=== PATIENT | female | born 1935 | race Caucasian/White ===

== ENCOUNTER → 2017-03-17 | Outpatient (CLI) | payer OTHER ==
[~2017-03-17] MED LIST: LEVOTHYROXINE; SINEMET
[2017-03-17 11:05] LABS: Basophils # (auto) 0 uL; Basophils % (auto) 0.5 % (0.0-2.0); CONDITION Y; Eosinophils # (auto) 0.1 uL; Eosinophils % (auto) 1.9 % (0.0-7.0); Hematocrit 41.7 % (36.0-46.0); Hemoglobin 13.9 g/dL (12.2-16.2); Lymphocytes # (auto) 1.2 uL; Lymphocytes % (auto) 17.9 % (10.0-50.0); Mean Corpuscular Hemoglobin 30.1 pg (28.0-32.0); Mean Corpuscular Hgb Conc. 33.4 g/dL (32.0-36.0); Mean Corpuscular Volume 90.2 fL (80.0-100.0); Mean Platelet Volume 9.2 fL (7.4-10.4); Monocytes # (auto) 0.4 uL; Monocytes % (auto) 6.1 % (0.0-12.0); Neutrophils # (auto) 4.8 uL; Neutrophils % (auto) 73.6 % (37.0-80.0); Platelet Count (auto) 223 10^3/uL (140-450); White Blood Cell 6.6 10^3/uL (4.4-10.8)
[2017-03-17 11:07] LABS: Urine Bilirubin Negative (Negative); Urine Blood Negative /uL (Negative); Urine Color Yellow (Yellow); Urine Glucose Normal (Normal); Urine Hyaline Cast FEW /lpf (0 - 2); Urine Ketone Negative (Negative); Urine Mucus FEW (None Seen); Urine Nitrite Negative (Negative); Urine RBC <1 /hpf (0 - 4); Urine Squamous Epithelial Cell FEW /hpf (<5); Urine Urobilinogen Normal (Negative)
[2017-03-17 11:37] LABS: Albumin 3.5 g/dL (3.4-5.0); BUN/Creatinine Ratio 22.4; Bilirubin, Total 0.4 mg/dL (0.2-1.0); Calcium 9.1 mg/dL (8.5-10.1); Potassium 4.1 mmol/L (3.5-5.1); Total Protein 7.2 g/dL (6.4-8.2)
== END | disposition home or self-care (01) ==
LOC: LAB 09:57
PROVIDERS: ATTEND Family Medicine
DX: I10 Essential (primary) hypertension (principal); E78.5 Hyperlipidemia, unspecified; E11.9 Type 2 diabetes mellitus without complications; E03.9 Hypothyroidism, unspecified; E55.9 Vitamin D deficiency, unspecified
CPT/HCPCS: 36415; 80053; 80061; 81001; 82043; 82306; 83036; 84443; 85025

== ENCOUNTER 2018-02-02 15:04 | Inpatient (IN) | payer OTHER ==
[~2018-02-02] VITALS: Ht 162.6 cm; Wt 57.4 kg
[~2018-02-02 15:04] MED LIST changes: -LEVOTHYROXINE; +LEVOTHYROXINE PO; -SINEMET; +SINEMET PO
[2018-02-02] MEDS ORDERED: MORPHINE SULF INJ 2 MG/ML SYRINGE 1ML IV ONE (16:30)
[2018-02-02 16:55] LABS: Basophils # (auto) 0 uL; Basophils % (auto) 0.2 % (0.0-2.0); Eosinophils # (auto) 0 uL; Eosinophils % (auto) 0.3 % (0.0-7.0); Hematocrit 34.2 % (36.0-46.0); Hemoglobin 11.5 g/dL (12.2-16.2); Lymphocytes # (auto) 0.5 uL; Lymphocytes % (auto) 5.3 % (10.0-50.0); Mean Corpuscular Hemoglobin 30.3 pg (28.0-32.0); Mean Corpuscular Hgb Conc. 33.7 g/dL (32.0-36.0); Monocytes # (auto) 0.6 uL; Monocytes % (auto) 6.6 % (0.0-12.0); Neutrophils # (auto) 8.6 uL; Neutrophils % (auto) 87.6 % (37.0-80.0); Platelet Count (auto) 228 10^3/uL (140-450); Red Cell Distribution Width 14.4 % (11.8-14.3); White Blood Cell 9.8 10^3/uL (4.4-10.8)
[2018-02-02 17:09] LABS: Potassium 3.9 mmol/L (3.5-5.1)
[2018-02-02 18:41] LABS: INR 0.96 (0.9-1.15); Prothrombin Time 10.3 sec (9.27-12.13)
[2018-02-02] MEDS: HYDROcodone-ACET 5/325MG TAB PO PRN (20:58)
[2018-02-02 21:44] VITALS: BP 171/80
[2018-02-02 22:21] VITALS: BP 155/85
[2018-02-03 04:51] VITALS: BP 137/64
[2018-02-03 07:28] LABS: BUN/Creatinine Ratio 26.9; Calcium 8.2 mg/dL (8.5-10.1); Potassium 3.8 mmol/L (3.5-5.1)
[2018-02-03 08:00] VITALS: BP 146/81
[2018-02-03] MEDS ORDERED: PNEUMOCOCCAL VACC POLYS 25 MCG/0.5 ML VIAL IM ONE (08:00)
[2018-02-03 09:00] VITALS: BP 146/81
[2018-02-03] MEDS: LISINOPRIL 10 MG TAB PO SCH (09:32)
[2018-02-03] MEDS: HYDROcodone-ACET 5/325MG TAB PO PRN (09:32)
[2018-02-03 13:00] VITALS: BP 152/68
[2018-02-03] MEDS ORDERED: POTA20TA53 PO (14:07)
[2018-02-03] MEDS ORDERED: SERT-160 PO (14:07)
[2018-02-03] MEDS ORDERED: METF-370 PO (14:07)
[2018-02-03] MEDS ORDERED: LISI-646 PO (14:07)
[2018-02-03] MEDS ORDERED: HCTZ25T PO (14:07)
[2018-02-03] MEDS ORDERED: AMLO5TAB2 PO (14:07)
[2018-02-03] MEDS ORDERED: SIMV-8 PO (14:08)
[2018-02-03] MEDS ORDERED: OMEP20TA PO (14:08)
[2018-02-03 17:00] VITALS: BP 126/63
[2018-02-03 22:00] VITALS: BP 162/83
[2018-02-04] MEDS: HYDROcodone-ACET 5/325MG TAB PO PRN ×2 (05:13→18:07)
[2018-02-04 05:30] VITALS: BP 160/88
[2018-02-04 08:00] VITALS: BP 137/79
[2018-02-04 09:55] VITALS: BP 137/79
[2018-02-04] MEDS: LISINOPRIL 10 MG TAB PO SCH (10:00)
[2018-02-04] MEDS ORDERED: DEXTROSE (50%) 50ML SYRG IV PRN (11:15)
[2018-02-04] MEDS ORDERED: LEVOTHYROXINE SODIUM 25 MCG TAB PO ONE (11:15)
[2018-02-04] MEDS: InsuLIN REG 1unit/0.01ml Soln (100units/ml) SC SCH ×3 (11:30→21:42)
[2018-02-04] MEDS ORDERED: amLODIPine BESYLATE 5 MG TAB PO ONE (11:30)
[2018-02-04] MEDS: ACCU-CHEK COMFORT CURVE STRIP VI SCH ×3 (11:30→21:42)
[2018-02-04] MEDS ORDERED: SERTRALINE HCL 50 MG TAB PO ONE (11:30)
[2018-02-04 12:52] VITALS: BP 144/74
[2018-02-04 17:23] VITALS: BP 145/97
[2018-02-04] MEDS: SODIUM CHLORIDE 0.9% 1,000 ML IV SCH (18:08)
[2018-02-04 22:00] VITALS: BP 147/82
[2018-02-04] MEDS ORDERED: diphenhdrAMINE HCL 25 MG CAP PO ONE (23:00)
[2018-02-05 01:00] LABS: Urine Bacteria FEW /hpf (None Seen); Urine Blood 3+ /uL (Negative); Urine Hyaline Cast FEW /lpf (0 - 2); Urine Mucus FEW (None Seen); Urine Specific Gravity 1.023 (1.001-1.035); Urine WBC 65 /hpf (0 - 5)
[2018-02-05] MEDS: MORPHINE SULF INJ 2 MG/ML SYRINGE 1ML IV PRN ×3 (03:57→22:08)
[2018-02-05] MEDS: ONDANSETRON HCL 4 MG/2 ML VIAL IV PRN (03:58)
[2018-02-05] MEDS: SODIUM CHLORIDE 0.9% 1,000 ML IV SCH ×2 (04:38→20:35)
[2018-02-05 05:00] VITALS: BP 150/86
[2018-02-05] MEDS: LEVOTHYROXINE SODIUM 25 MCG TAB PO SCH (06:17)
[2018-02-05] MEDS: ACCU-CHEK COMFORT CURVE STRIP VI SCH ×4 (06:17→22:00)
[2018-02-05] MEDS: InsuLIN REG 1unit/0.01ml Soln (100units/ml) SC SCH ×4 (06:17→22:02)
[2018-02-05 08:00] VITALS: BP 162/80
[2018-02-05 08:08] VITALS: BP 149/80
[2018-02-05] MEDS: LISINOPRIL 10 MG TAB PO SCH (08:30)
[2018-02-05] MEDS: amLODIPine BESYLATE 5 MG TAB PO SCH (08:31)
[2018-02-05] MEDS ORDERED: ceFAZolin 1GM/50ML 100 ML IV ONE (09:25)
[2018-02-05] MEDS ORDERED: ceFAZolin 1GM 2 GM in D5W 5% 100 ML IV ONE (09:30)
[2018-02-05] MEDS ORDERED: SODIUM CHLORIDE LOCK 30 ML ONE (09:44)
[2018-02-05] MEDS ORDERED: fentaNYL CITRATE 5 ML ONE ×2 (09:44→09:49)
[2018-02-05] MEDS ORDERED: fentaNYL CITRATE 100 MCG/2 ML VL ONE (09:44)
[2018-02-05] MEDS ORDERED: PROPOFOL 10 MG/ML 20 ML IV ONE (09:44)
[2018-02-05] MEDS ORDERED: MEPERIDINE HCL (50 MG/ML) 1 ML VIAL ONE (09:44)
[2018-02-05] MEDS ORDERED: MIDAZOLAM HCL 1MG/1ML-2 ML VIAL ONE (09:44)
[2018-02-05] MEDS ORDERED: ONDANSETRON HCL 4 MG/2 ML VIAL ONE (09:44)
[2018-02-05] MEDS ORDERED: fentaNYL CITRATE 100 MCG/2 ML VL IV ONE (11:00)
[2018-02-05] MEDS ORDERED: METOCLOPRAMIDE HCL 5MG/ml INJ 2ml VIAL IV ONE (11:00)
[2018-02-05] MEDS ORDERED: ACCU-CHEK COMFORT CURVE STRIP VI ONE (11:00)
[2018-02-05] MEDS ORDERED: NEOSTIGMINE 1 MG/ML INJ (10mg/10ML VIAL) ONE (11:14)
[2018-02-05] MEDS ORDERED: KETOROLAC TROMETH 60MG/2ML VIAL IM ONE (11:14)
[2018-02-05] MEDS ORDERED: GLYCOPYRROLATE 0.2 MG/ML 1ML VIAL ONE (11:14)
[2018-02-05] MEDS ORDERED: hydrALAZINE HCL 20 MG/ML VL IV PRN (14:00)
[2018-02-05 16:22] VITALS: BP 121/64
[2018-02-05] MEDS: SERTRALINE HCL 50 MG TAB PO SCH (17:56)
[2018-02-05] MEDS: CEFAZOLIN 1 GM IV SCH (17:57)
[2018-02-05 22:00] VITALS: BP 105/56
[2018-02-06] VITALS (7 sets, daily range): BP systolic 138–152; BP diastolic 64–82
[2018-02-06] MEDS: CEFAZOLIN 1 GM IV SCH ×4 (00:16→18:12)
[2018-02-06 05:59] LABS: Basophils # (auto) 0 uL; Basophils % (auto) 0.2 % (0.0-2.0); Eosinophils # (auto) 0.2 uL; Eosinophils % (auto) 2.3 % (0.0-7.0); Hematocrit 28.1 % (36.0-46.0); Hemoglobin 9.6 g/dL (12.2-16.2); Lymphocytes # (auto) 0.6 uL; Lymphocytes % (auto) 6.9 % (10.0-50.0); Mean Corpuscular Hemoglobin 30.9 pg (28.0-32.0); Mean Corpuscular Volume 91.1 fL (80.0-100.0); Monocytes # (auto) 0.4 uL; Monocytes % (auto) 4.9 % (0.0-12.0); Neutrophils # (auto) 7.2 uL; Neutrophils % (auto) 85.7 % (37.0-80.0); Platelet Count (auto) 266 10^3/uL (140-450); Red Blood Cells 3.09 10^6/uL (4.0-5.20); Red Cell Distribution Width 14.7 % (11.8-14.3); White Blood Cell 8.5 10^3/uL (4.4-10.8)
[2018-02-06] MEDS: ACCU-CHEK COMFORT CURVE STRIP VI SCH ×4 (06:37→21:56)
[2018-02-06] MEDS: InsuLIN REG 1unit/0.01ml Soln (100units/ml) SC SCH ×4 (06:37→21:56)
[2018-02-06 06:38] LABS: BUN/Creatinine Ratio 29.9; Bilirubin, Total 0.4 mg/dL (0.2-1.0); Calcium 7.5 mg/dL (8.5-10.1); Magnesium 2.2 mg/dL (1.6-2.6); Potassium 3.9 mmol/L (3.5-5.1)
[2018-02-06] MEDS: LEVOTHYROXINE SODIUM 25 MCG TAB PO SCH (06:50)
[2018-02-06] MEDS: MORPHINE SULF INJ 2 MG/ML SYRINGE 1ML IV PRN ×2 (06:51→20:49)
[2018-02-06] MEDS: HYDROcodone-ACET 5/325MG TAB PO PRN (09:34)
[2018-02-06] MEDS: amLODIPine BESYLATE 5 MG TAB PO SCH (09:35)
[2018-02-06] MEDS: SERTRALINE HCL 50 MG TAB PO SCH (09:35)
[2018-02-06] MEDS: LISINOPRIL 10 MG TAB PO SCH (09:36)
[2018-02-06] MEDS: PRO-STAT 64 30ML PO SCH (18:00)
[2018-02-06] MEDS: MULTIPLE VITAMINS W/ MINERALS TAB PO SCH (18:14)
[2018-02-06] MEDS: ASCORBIC ACID 500 MG TAB PO SCH (21:57)
[2018-02-07] VITALS (7 sets, daily range): BP systolic 143–158; BP diastolic 72–80
[2018-02-07] MEDS: MORPHINE SULF INJ 2 MG/ML SYRINGE 1ML IV PRN (05:54)
[2018-02-07 06:15] LABS: Basophils # (auto) 0 uL; Basophils % (auto) 0.4 % (0.0-2.0); Eosinophils # (auto) 0.2 uL; Eosinophils % (auto) 2.4 % (0.0-7.0); Hematocrit 27.1 % (36.0-46.0); Hemoglobin 9.1 g/dL (12.2-16.2); Lymphocytes # (auto) 0.9 uL; Lymphocytes % (auto) 9.9 % (10.0-50.0); Mean Corpuscular Hemoglobin 30.3 pg (28.0-32.0); Mean Corpuscular Hgb Conc. 33.5 g/dL (32.0-36.0); Mean Corpuscular Volume 90.3 fL (80.0-100.0); Monocytes # (auto) 0.6 uL; Monocytes % (auto) 6.5 % (0.0-12.0); Neutrophils # (auto) 7.3 uL; Neutrophils % (auto) 80.8 % (37.0-80.0); Platelet Count (auto) 281 10^3/uL (140-450); Red Cell Distribution Width 14.8 % (11.8-14.3)
[2018-02-07 06:36] LABS: Calcium 7.5 mg/dL (8.5-10.1); Potassium 3.6 mmol/L (3.5-5.1)
[2018-02-07 06:38] LABS: BUN/Creatinine Ratio 35.7
[2018-02-07] MEDS: InsuLIN REG 1unit/0.01ml Soln (100units/ml) SC SCH ×4 (06:41→21:37)
[2018-02-07] MEDS: ACCU-CHEK COMFORT CURVE STRIP VI SCH ×4 (06:41→21:37)
[2018-02-07] MEDS: LEVOTHYROXINE SODIUM 25 MCG TAB PO SCH (06:49)
[2018-02-07] MEDS: PRO-STAT 64 30ML PO SCH ×2 (08:00→17:56)
[2018-02-07] MEDS: DOCUSATE SOD 100 MG CAP PO SCH ×2 (10:29→21:36)
[2018-02-07] MEDS: MULTIPLE VITAMINS W/ MINERALS TAB PO SCH (10:29)
[2018-02-07] MEDS: amLODIPine BESYLATE 5 MG TAB PO SCH (10:30)
[2018-02-07] MEDS: ASCORBIC ACID 500 MG TAB PO SCH ×2 (10:31→21:36)
[2018-02-07] MEDS: LISINOPRIL 10 MG TAB PO SCH (10:32)
[2018-02-07] MEDS: SERTRALINE HCL 50 MG TAB PO SCH (10:32)
[2018-02-07] MEDS: LACTULOSE 20Gm/30ML SOLN PO PRN (10:33)
[2018-02-07] MEDS: ONDANSETRON HCL 4 MG/2 ML VIAL IV PRN (20:13)
[2018-02-08 05:00] VITALS: BP 136/75
[2018-02-08 06:48] LABS: Hematocrit 27.2 % (36.0-46.0); Hemoglobin 9.3 g/dL (12.2-16.2)
[2018-02-08] MEDS: ACCU-CHEK COMFORT CURVE STRIP VI SCH (06:49)
[2018-02-08] MEDS: LEVOTHYROXINE SODIUM 25 MCG TAB PO SCH (06:49)
[2018-02-08] MEDS: InsuLIN REG 1unit/0.01ml Soln (100units/ml) SC SCH (06:50)
[2018-02-08] MEDS: PRO-STAT 64 30ML PO SCH ×2 (08:00→18:25)
[2018-02-08 08:30] VITALS: BP 160/76
[2018-02-08] MEDS: DOCUSATE SOD 100 MG CAP PO SCH ×2 (10:33→22:16)
[2018-02-08] MEDS: LISINOPRIL 10 MG TAB PO SCH (10:33)
[2018-02-08] MEDS: MULTIPLE VITAMINS W/ MINERALS TAB PO SCH (10:33)
[2018-02-08] MEDS: ASCORBIC ACID 500 MG TAB PO SCH ×2 (10:33→22:16)
[2018-02-08] MEDS: SERTRALINE HCL 50 MG TAB PO SCH (10:34)
[2018-02-08] MEDS: amLODIPine BESYLATE 5 MG TAB PO SCH (10:42)
[2018-02-08] MEDS: LACTULOSE 20Gm/30ML SOLN PO PRN (10:42)
[2018-02-08] MEDS: HYDROcodone-ACET 5/325MG TAB PO PRN ×3 (10:44→22:16)
[2018-02-08] MEDS: ONDANSETRON HCL 4 MG/2 ML VIAL IV PRN ×2 (10:44→17:10)
[2018-02-08 10:56] LABS: Hematocrit 28.3 % (36.0-46.0); Hemoglobin 9.6 g/dL (12.2-16.2)
[2018-02-08 13:36] VITALS: BP 129/70
[2018-02-08 16:55] VITALS: BP 130/70
[2018-02-08 22:00] VITALS: BP 126/76
[2018-02-09 05:00] VITALS: BP 144/74
[2018-02-09] MEDS: LEVOTHYROXINE SODIUM 25 MCG TAB PO SCH (06:00)
[2018-02-09 08:00] VITALS: BP 131/66
[2018-02-09] MEDS: PRO-STAT 64 30ML PO SCH (08:00)
[2018-02-09] MEDS: HYDROcodone-ACET 5/325MG TAB PO PRN (08:33)
[2018-02-09] MEDS: SERTRALINE HCL 50 MG TAB PO SCH (10:15)
[2018-02-09] MEDS: amLODIPine BESYLATE 5 MG TAB PO SCH (10:15)
[2018-02-09] MEDS ORDERED: CALCIUM CARB 500 MG CHEW TAB PO ONE (10:15)
[2018-02-09] MEDS: MULTIPLE VITAMINS W/ MINERALS TAB PO SCH (10:15)
[2018-02-09] MEDS: DOCUSATE SOD 100 MG CAP PO SCH (10:15)
[2018-02-09] MEDS ORDERED: PANTOPRAZOLE 40 MG TAB PO ONE (10:15)
[2018-02-09] MEDS: LISINOPRIL 10 MG TAB PO SCH (10:15)
[2018-02-09 11:00] VITALS: BP 131/66
[2018-02-09 12:30] VITALS: BP 132/76
[2018-02-09 13:30] VITALS: BP 161/77
== END 2018-02-09 12:24 | disposition home or self-care (01) | DRG 483 ==
LOC: ER 15:11 → OVERFLOW 15:12 → CENTRAL 20:05
PROVIDERS: ADMIT Internal Medicine; ATTEND Internal Medicine
PROC: 0LQ10ZZ Repair Right Shoulder Tendon, Open Approach (ICD-10-PCS; 2018-02-05)
PROC: 0LS10ZZ Reposition Right Shoulder Tendon, Open Approach (ICD-10-PCS; 2018-02-05)
PROC: 0RRJ0J6 Replacement of Right Shoulder Joint with Synthetic Substitute, Humeral Surface, Open Approach (ICD-10-PCS; principal; 2018-02-05 10:18)
DX: S42.241A 4-part fracture of surgical neck of right humerus, initial encounter for closed fracture (principal); J96.00 Acute respiratory failure, unspecified whether with hypoxia or hypercapnia; N17.0 Acute kidney failure with tubular necrosis; S22.41XA Multiple fractures of ribs, right side, initial encounter for closed fracture; D62 Acute posthemorrhagic anemia; E70.1 Other hyperphenylalaninemias; E03.9 Hypothyroidism, unspecified; E11.9 Type 2 diabetes mellitus without complications; I10 Essential (primary) hypertension; K59.00 Constipation, unspecified; I70.0 Atherosclerosis of aorta; M54.9 Dorsalgia, unspecified; G89.29 Other chronic pain; W18.39XA Other fall on same level, initial encounter; Y93.01 Activity, walking, marching and hiking; M75.21 Bicipital tendinitis, right shoulder; M75.101 Unspecified rotator cuff tear or rupture of right shoulder, not specified as traumatic; Z90.89 Acquired absence of other organs; Z90.710 Acquired absence of both cervix and uterus; Y92.098 Other place in other non-institutional residence as the place of occurrence of the external cause; Y99.8 Other external cause status; Z28.21 Immunization not carried out because of patient refusal
CPT/HCPCS: 36415; 51702; 71045; 73020; 73200; 80048; 80053; 81001; 82962; 83036; 83735; 84443; 85014; 85018; 85025; 85610; 85730; 87086; 93005; 94761; 96374; 97110; 97116; 97163; 97530; J0690; J1815; J1885; J2250; J2405; J2704; J7060

== ENCOUNTER 2018-04-11 17:11 | Inpatient (IN) | payer OTHER ==
[~2018-04-11] VITALS: Ht 165.1 cm; Wt 55.6 kg
[~2018-04-11 17:11] MED LIST changes: +AMLO5TAB13 PO; +HCTZ25T PO; +LISI-646 PO; +METF-370 PO; +OMEP20TA PO; +POTA20TA53 PO; +SERT-160 PO; +SIMV-8 PO
[2018-04-11] MEDS ORDERED: SODIUM CHLORIDE 0.9% 1,000 ML IVB ONE (17:57)
[2018-04-11 18:52] LABS: Basophils # (auto) 0 uL; Basophils % (auto) 0.4 % (0.0-2.0); Eosinophils # (auto) 0.1 uL; Eosinophils % (auto) 1.1 % (0.0-7.0); Hematocrit 37.9 % (36.0-46.0); Hemoglobin 12.5 g/dL (12.2-16.2); Lymphocytes # (auto) 0.7 uL; Lymphocytes % (auto) 10.2 % (10.0-50.0); Mean Corpuscular Hemoglobin 29.7 pg (28.0-32.0); Mean Corpuscular Hgb Conc. 33.1 g/dL (32.0-36.0); Mean Corpuscular Volume 89.7 fL (80.0-100.0); Monocytes # (auto) 0.6 uL; Monocytes % (auto) 7.7 % (0.0-12.0); Neutrophils # (auto) 5.8 uL; Neutrophils % (auto) 80.6 % (37.0-80.0); Platelet Count (auto) 211 10^3/uL (140-450); Red Blood Cells 4.22 10^6/uL (4.0-5.20); Red Cell Distribution Width 14.8 % (11.8-14.3); White Blood Cell 7.2 10^3/uL (4.4-10.8)
[2018-04-11 19:06] LABS: INR 0.98 (0.9-1.15); Partial Thromboplastin Time 24.4 sec (23.78-33.04); Prothrombin Time 10.5 sec (9.27-12.13)
[2018-04-11 19:17] LABS: Alanine Aminotransferase 21 U/L (13-56); Albumin 3.4 g/dL (3.4-5.0); Alkaline Phosphatase 103 U/L (45-117); Anion Gap 7 (5-15); Aspartate Aminotransferase 22 U/L (15-37); BUN/Creatinine Ratio 19.5; Bilirubin, Total 0.2 mg/dL (0.2-1.0); Blood Urea Nitrogen 24 mg/dL (7-18); Calcium 8.6 mg/dL (8.5-10.1); Carbon Dioxide 26 mmol/L (21-32); Chloride 106 mmol/L (98-107); GFR African American 54 mL/min; GFR Non-African American 45 mL/min; Glucose 88 mg/dL (74-106); Magnesium 2.7 mg/dL (1.6-2.6); Potassium 3.5 mmol/L (3.5-5.1); Sodium 139 mmol/L (136-145); Total Protein 6.5 g/dL (6.4-8.2)
[2018-04-11 21:41] LABS: Urine Bacteria NONE SEEN /hpf (None Seen); Urine Blood Negative /uL (Negative); Urine Specific Gravity 1.006 (1.001-1.035); Urine WBC 88 /hpf (0 - 5)
[2018-04-11] MEDS ORDERED: cefTRIAXone 1GM/10ml IVPUSH 10 ML IV ONE (22:45)
[2018-04-12] MEDS ORDERED: TEMAZEPAM 15 MG CAP PO PRN (00:45)
[2018-04-12] MEDS ORDERED: ACETAMINOPHEN 500 MG TAB PO PRN (00:45)
[2018-04-12] MEDS ORDERED: ONDANSETRON HCL 4 MG/2 ML VIAL IV PRN (00:45)
[2018-04-12] MEDS ORDERED: DEXTROSE (50%) 50ML SYRG IV PRN (00:45)
[2018-04-12] MEDS: InsuLIN REG 1unit/0.01ml Soln (100units/ml) SC SCH ×4 (07:00→22:26)
[2018-04-12] MEDS: ACCU-CHEK COMFORT CURVE STRIP VI SCH ×4 (07:10→22:26)
[2018-04-12] MEDS: LEVOTHYROXINE SODIUM 25 MCG TAB PO SCH (07:46)
[2018-04-12] MEDS: metFORMIN HYDROCHLORIDE 500 MG TAB PO SCH ×2 (08:30→18:00)
[2018-04-12] MEDS: amLODIPine BESYLATE 5 MG TAB PO SCH (09:37)
[2018-04-12 10:51] LABS: Basophils # (auto) 0 uL; Basophils % (auto) 0.7 % (0.0-2.0); Eosinophils # (auto) 0.1 uL; Eosinophils % (auto) 1.8 % (0.0-7.0); Hemoglobin 12.2 g/dL (12.2-16.2); Lymphocytes % (auto) 15.5 % (10.0-50.0); Mean Corpuscular Hgb Conc. 32.2 g/dL (32.0-36.0); Mean Corpuscular Volume 90.3 fL (80.0-100.0); Monocytes # (auto) 0.3 uL; Monocytes % (auto) 5.2 % (0.0-12.0); Neutrophils # (auto) 5.2 uL; Neutrophils % (auto) 76.8 % (37.0-80.0); Platelet Count (auto) 163 10^3/uL (140-450); Red Blood Cells 4.21 10^6/uL (4.0-5.20); Red Cell Distribution Width 14.8 % (11.8-14.3); White Blood Cell 6.7 10^3/uL (4.4-10.8)
[2018-04-12 11:06] LABS: BUN/Creatinine Ratio 20.4; Calcium 8.4 mg/dL (8.5-10.1); Potassium 3.9 mmol/L (3.5-5.1)
[2018-04-12 14:32] VITALS: BP 155/83
[2018-04-12 17:09] VITALS: BP 140/72
[2018-04-12 22:00] VITALS: BP 136/75
[2018-04-12] MEDS: cefTRIAXone 1GM/10ml IVPUSH 10 ML IV SCH (22:25)
[2018-04-13 05:00] VITALS: BP 165/83
[2018-04-13] MEDS: InsuLIN REG 1unit/0.01ml Soln (100units/ml) SC SCH ×4 (06:43→21:38)
[2018-04-13] MEDS: ACCU-CHEK COMFORT CURVE STRIP VI SCH ×4 (06:44→21:39)
[2018-04-13] MEDS: LEVOTHYROXINE SODIUM 25 MCG TAB PO SCH (06:55)
[2018-04-13 08:00] VITALS: BP 167/78
[2018-04-13] MEDS: metFORMIN HYDROCHLORIDE 500 MG TAB PO SCH ×2 (08:54→17:47)
[2018-04-13] MEDS: amLODIPine BESYLATE 5 MG TAB PO SCH (10:43)
[2018-04-13 12:00] VITALS: BP 144/83
[2018-04-13] MEDS ORDERED: SOD CHL 0.45% 1,000 ML IV ONE (13:30)
[2018-04-13 16:00] VITALS: BP 146/77
[2018-04-13] MEDS: cefTRIAXone 1GM/10ml IVPUSH 10 ML IV SCH (21:38)
[2018-04-13 22:00] VITALS: BP 154/83
[2018-04-14 06:03] VITALS: BP 158/84
[2018-04-14] MEDS: InsuLIN REG 1unit/0.01ml Soln (100units/ml) SC SCH ×4 (06:04→21:52)
[2018-04-14] MEDS: ACCU-CHEK COMFORT CURVE STRIP VI SCH ×4 (06:04→21:52)
[2018-04-14] MEDS: LEVOTHYROXINE SODIUM 25 MCG TAB PO SCH (06:41)
[2018-04-14 07:03] LABS: Basophils # (auto) 0 uL; Basophils % (auto) 0.8 % (0.0-2.0); Eosinophils # (auto) 0.2 uL; Eosinophils % (auto) 2.8 % (0.0-7.0); Hematocrit 37.1 % (36.0-46.0); Hemoglobin 12.3 g/dL (12.2-16.2); Lymphocytes # (auto) 0.8 uL; Lymphocytes % (auto) 14.7 % (10.0-50.0); Mean Corpuscular Hemoglobin 29.7 pg (28.0-32.0); Mean Corpuscular Hgb Conc. 33.2 g/dL (32.0-36.0); Mean Corpuscular Volume 89.3 fL (80.0-100.0); Monocytes # (auto) 0.4 uL; Monocytes % (auto) 7.5 % (0.0-12.0); Neutrophils # (auto) 4.2 uL; Neutrophils % (auto) 74.2 % (37.0-80.0); Nucleated Red Blood Cells % 0.1 %; Platelet Count (auto) 197 10^3/uL (140-450); Red Blood Cells 4.15 10^6/uL (4.0-5.20); White Blood Cell 5.6 10^3/uL (4.4-10.8)
[2018-04-14 07:23] LABS: BUN/Creatinine Ratio 23.3; Calcium 8.5 mg/dL (8.5-10.1); Potassium 3.7 mmol/L (3.5-5.1)
[2018-04-14] MEDS: metFORMIN HYDROCHLORIDE 500 MG TAB PO SCH ×2 (08:14→18:45)
[2018-04-14 09:00] VITALS: BP 152/71
[2018-04-14] MEDS: amLODIPine BESYLATE 5 MG TAB PO SCH (10:41)
[2018-04-14 13:00] VITALS: BP 153/97
[2018-04-14 17:19] VITALS: BP 132/59
[2018-04-14] MEDS: ACETAMINOPHEN 325 MG TAB PO PRN (17:27)
[2018-04-14] MEDS ORDERED: cloNIDine HCL 0.1 MG TAB PO ONE (21:00)
[2018-04-14] MEDS: cefTRIAXone 1GM/10ml IVPUSH 10 ML IV SCH (21:45)
[2018-04-14 22:00] VITALS: BP 192/94
[2018-04-14] MEDS ORDERED: METOPROLOL TARTRATE 1MG/1ML-5ML VIAL IV ONE (22:45)
[2018-04-15] VITALS (7 sets, daily range): BP systolic 125–154; BP diastolic 69–90
[2018-04-15] MEDS: ACCU-CHEK COMFORT CURVE STRIP VI SCH ×4 (06:22→21:29)
[2018-04-15] MEDS: metFORMIN HYDROCHLORIDE 500 MG TAB PO SCH ×2 (06:22→18:29)
[2018-04-15] MEDS: InsuLIN REG 1unit/0.01ml Soln (100units/ml) SC SCH ×4 (06:22→21:39)
[2018-04-15] MEDS: ACETAMINOPHEN 325 MG TAB PO PRN (06:31)
[2018-04-15] MEDS: LEVOTHYROXINE SODIUM 25 MCG TAB PO SCH (07:02)
[2018-04-15 07:10] LABS: Basophils # (auto) 0 uL; Basophils % (auto) 0.4 % (0.0-2.0); Eosinophils # (auto) 0.1 uL; Eosinophils % (auto) 1.9 % (0.0-7.0); Hematocrit 37.3 % (36.0-46.0); Hemoglobin 12.4 g/dL (12.2-16.2); Lymphocytes # (auto) 1.3 uL; Lymphocytes % (auto) 19.3 % (10.0-50.0); Mean Corpuscular Hemoglobin 29.4 pg (28.0-32.0); Mean Corpuscular Hgb Conc. 33.2 g/dL (32.0-36.0); Mean Corpuscular Volume 88.7 fL (80.0-100.0); Monocytes # (auto) 0.5 uL; Monocytes % (auto) 6.7 % (0.0-12.0); Neutrophils # (auto) 4.9 uL; Neutrophils % (auto) 71.7 % (37.0-80.0); Nucleated Red Blood Cells % 0.1 %; Platelet Count (auto) 218 10^3/uL (140-450); Red Blood Cells 4.21 10^6/uL (4.0-5.20); Red Cell Distribution Width 14.4 % (11.8-14.3); White Blood Cell 6.8 10^3/uL (4.4-10.8)
[2018-04-15 07:30] LABS: BUN/Creatinine Ratio 34.7; Calcium 8.5 mg/dL (8.5-10.1); Potassium 3.6 mmol/L (3.5-5.1)
[2018-04-15] MEDS: amLODIPine BESYLATE 5 MG TAB PO SCH (09:43)
[2018-04-15] MEDS: cefTRIAXone 1GM/10ml IVPUSH 10 ML IV SCH (21:29)
[2018-04-15] MEDS: HYDROcodone-ACET 5/325MG TAB PO PRN (21:40)
[2018-04-16 05:00] VITALS: BP 159/85
[2018-04-16 07:24] LABS: Basophils # (auto) 0.1 uL; Basophils % (auto) 0.9 % (0.0-2.0); Eosinophils # (auto) 0.2 uL; Eosinophils % (auto) 2.6 % (0.0-7.0); Hematocrit 36.2 % (36.0-46.0); Hemoglobin 12.1 g/dL (12.2-16.2); Lymphocytes # (auto) 1.3 uL; Lymphocytes % (auto) 20.3 % (10.0-50.0); Mean Corpuscular Hemoglobin 29.5 pg (28.0-32.0); Mean Corpuscular Hgb Conc. 33.5 g/dL (32.0-36.0); Mean Corpuscular Volume 87.9 fL (80.0-100.0); Monocytes # (auto) 0.5 uL; Monocytes % (auto) 7.5 % (0.0-12.0); Neutrophils # (auto) 4.3 uL; Neutrophils % (auto) 68.7 % (37.0-80.0); Platelet Count (auto) 217 10^3/uL (140-450); Red Blood Cells 4.11 10^6/uL (4.0-5.20); Red Cell Distribution Width 14.3 % (11.8-14.3); White Blood Cell 6.2 10^3/uL (4.4-10.8)
[2018-04-16 07:30] LABS: BUN/Creatinine Ratio 40.3; Calcium 8.3 mg/dL (8.5-10.1); Potassium 3.5 mmol/L (3.5-5.1)
[2018-04-16] MEDS: LEVOTHYROXINE SODIUM 25 MCG TAB PO SCH (08:10)
[2018-04-16] MEDS: amLODIPine BESYLATE 5 MG TAB PO SCH (08:12)
[2018-04-16] MEDS: metFORMIN HYDROCHLORIDE 500 MG TAB PO SCH ×2 (08:12→17:34)
[2018-04-16] MEDS: ENOXAPARIN SOD 30 MG/0.3 ML SYRINGE SC SCH (08:14)
[2018-04-16] MEDS: InsuLIN REG 1unit/0.01ml Soln (100units/ml) SC SCH (08:16)
[2018-04-16] MEDS: ACCU-CHEK COMFORT CURVE STRIP VI SCH (08:16)
[2018-04-16 09:00] VITALS: BP 162/89
[2018-04-16] MEDS ORDERED: ENOXAPARIN SOD 30 MG/0.3 ML SYRINGE SC SCH (10:00)
[2018-04-16 13:00] VITALS: BP 146/76
[2018-04-16] MEDS ORDERED: diphenhdrAMINE HCL 50 MG/1 ML VL IV ONE (15:15)
[2018-04-16] MEDS ORDERED: AMLO5TAB13 PO (16:47)
[2018-04-16] MEDS ORDERED: SIMV-8 PO (16:47)
[2018-04-16] MEDS ORDERED: PANT40TA2 PO (16:47)
[2018-04-16] MEDS ORDERED: SERT-274 PO (16:47)
[2018-04-16] MEDS ORDERED: OMEP20TA PO (16:47)
[2018-04-16] MEDS ORDERED: HYDR-4683 PO (16:47)
[2018-04-16] MEDS ORDERED: LISI-285 PO (16:47)
[2018-04-16] MEDS ORDERED: CARB25TA2 PO (16:47)
[2018-04-16] MEDS ORDERED: POTA-180 PO (16:47)
[2018-04-16] MEDS ORDERED: LEVO50TA7 PO (16:47)
[2018-04-16] MEDS ORDERED: METF-370 PO (16:47)
[2018-04-16 17:00] VITALS: BP 100/72
[2018-04-16] MEDS: cefTRIAXone 1GM/10ml IVPUSH 10 ML IV SCH (20:55)
[2018-04-16] MEDS: HYDROcodone-ACET 5/325MG TAB PO PRN (20:56)
[2018-04-16 22:00] VITALS: BP 159/81
[2018-04-17 05:00] VITALS: BP 155/77
[2018-04-17 06:20] LABS: Basophils # (auto) 0.1 uL; Basophils % (auto) 1.1 % (0.0-2.0); Eosinophils # (auto) 0.2 uL; Eosinophils % (auto) 3.1 % (0.0-7.0); Hematocrit 35.8 % (36.0-46.0); Hemoglobin 12.1 g/dL (12.2-16.2); Lymphocytes % (auto) 20.9 % (10.0-50.0); Mean Corpuscular Hemoglobin 30.1 pg (28.0-32.0); Mean Corpuscular Hgb Conc. 33.8 g/dL (32.0-36.0); Monocytes # (auto) 0.4 uL; Monocytes % (auto) 8.1 % (0.0-12.0); Neutrophils # (auto) 3.3 uL; Neutrophils % (auto) 66.8 % (37.0-80.0); Platelet Count (auto) 195 10^3/uL (140-450); Red Blood Cells 4.02 10^6/uL (4.0-5.20)
[2018-04-17 06:36] LABS: BUN/Creatinine Ratio 28.1; Calcium 8.1 mg/dL (8.5-10.1); Potassium 3.2 mmol/L (3.5-5.1)
[2018-04-17] MEDS: LEVOTHYROXINE SODIUM 25 MCG TAB PO SCH (06:38)
[2018-04-17] MEDS: metFORMIN HYDROCHLORIDE 500 MG TAB PO SCH ×2 (08:00→17:28)
[2018-04-17 09:00] VITALS: BP 147/96
[2018-04-17] MEDS ORDERED: CALCIUM CARB 500 MG CHEW TAB PO ONE (10:15)
[2018-04-17] MEDS: FAMOTIDINE 20 MG TAB PO SCH ×2 (10:15→22:00)
[2018-04-17] MEDS: amLODIPine BESYLATE 5 MG TAB PO SCH (10:43)
[2018-04-17] MEDS: ENOXAPARIN SOD 30 MG/0.3 ML SYRINGE SC SCH (10:43)
[2018-04-17] MEDS: POTASSIUM CHL 20 Meq TABLET PO SCH ×2 (10:44→22:00)
[2018-04-17 13:00] VITALS: BP 161/86
[2018-04-17 17:00] VITALS: BP 148/88
[2018-04-17 22:00] VITALS: BP 153/88
[2018-04-17] MEDS: cefTRIAXone 1GM/10ml IVPUSH 10 ML IV SCH (22:00)
[2018-04-17] MEDS: HYDROcodone-ACET 5/325MG TAB PO PRN (22:14)
[2018-04-18 05:00] VITALS: BP 144/86
[2018-04-18] MEDS: LEVOTHYROXINE SODIUM 25 MCG TAB PO SCH (06:19)
[2018-04-18 07:13] LABS: Basophils # (auto) 0.1 uL; Basophils % (auto) 0.9 % (0.0-2.0); Eosinophils # (auto) 0.2 uL; Eosinophils % (auto) 2.7 % (0.0-7.0); Hematocrit 37.4 % (36.0-46.0); Hemoglobin 12.5 g/dL (12.2-16.2); Lymphocytes # (auto) 0.9 uL; Lymphocytes % (auto) 14.4 % (10.0-50.0); Mean Corpuscular Hemoglobin 29.6 pg (28.0-32.0); Mean Corpuscular Hgb Conc. 33.5 g/dL (32.0-36.0); Mean Corpuscular Volume 88.3 fL (80.0-100.0); Monocytes # (auto) 0.5 uL; Monocytes % (auto) 8.2 % (0.0-12.0); Neutrophils # (auto) 4.5 uL; Neutrophils % (auto) 73.8 % (37.0-80.0); Nucleated Red Blood Cells % 0.1 %; Platelet Count (auto) 227 10^3/uL (140-450); Red Blood Cells 4.23 10^6/uL (4.0-5.20); White Blood Cell 6.1 10^3/uL (4.4-10.8)
[2018-04-18 07:24] LABS: BUN/Creatinine Ratio 26.1; Calcium 8.2 mg/dL (8.5-10.1); Potassium 4.1 mmol/L (3.5-5.1)
[2018-04-18 08:00] VITALS: BP 144/81
[2018-04-18] MEDS: metFORMIN HYDROCHLORIDE 500 MG TAB PO SCH ×2 (08:00→18:00)
[2018-04-18] MEDS: amLODIPine BESYLATE 5 MG TAB PO SCH (09:44)
[2018-04-18] MEDS: FAMOTIDINE 20 MG TAB PO SCH ×3 (09:45→21:08)
[2018-04-18] MEDS: ENOXAPARIN SOD 30 MG/0.3 ML SYRINGE SC SCH (09:45)
[2018-04-18 12:00] VITALS: BP 166/83
[2018-04-18 16:00] VITALS: BP 150/85
[2018-04-18] MEDS: cefTRIAXone 1GM/10ml IVPUSH 10 ML IV SCH (21:08)
[2018-04-18 22:00] VITALS: BP 149/85
[2018-04-18] MEDS: ACETAMINOPHEN 325 MG TAB PO PRN (22:53)
[2018-04-19] MEDS ORDERED: PANTOPRAZOLE 40 MG/10 ML VIAL IV ONE (00:30)
[2018-04-19 04:55] VITALS: BP 161/93
[2018-04-19] MEDS: LEVOTHYROXINE SODIUM 25 MCG TAB PO SCH (06:38)
[2018-04-19 07:01] LABS: Basophils # (auto) 0.1 uL; Basophils % (auto) 0.9 % (0.0-2.0); Eosinophils # (auto) 0.2 uL; Eosinophils % (auto) 2.5 % (0.0-7.0); Hematocrit 39.2 % (36.0-46.0); Hemoglobin 13.5 g/dL (12.2-16.2); Lymphocytes # (auto) 0.7 uL; Lymphocytes % (auto) 11.5 % (10.0-50.0); Mean Corpuscular Hemoglobin 30.4 pg (28.0-32.0); Mean Corpuscular Hgb Conc. 34.4 g/dL (32.0-36.0); Mean Corpuscular Volume 88.3 fL (80.0-100.0); Monocytes # (auto) 0.4 uL; Monocytes % (auto) 6.7 % (0.0-12.0); Neutrophils # (auto) 4.9 uL; Neutrophils % (auto) 78.4 % (37.0-80.0); Nucleated Red Blood Cells % 0.1 %; Platelet Count (auto) 241 10^3/uL (140-450); Red Blood Cells 4.44 10^6/uL (4.0-5.20); Red Cell Distribution Width 14.7 % (11.8-14.3); White Blood Cell 6.2 10^3/uL (4.4-10.8)
[2018-04-19 07:18] LABS: BUN/Creatinine Ratio 25.3; Calcium 8.6 mg/dL (8.5-10.1); Potassium 3.6 mmol/L (3.5-5.1)
[2018-04-19 07:38] LABS: INR 0.97 (0.9-1.15); Partial Thromboplastin Time 25.1 sec (23.78-33.04); Prothrombin Time 10.4 sec (9.27-12.13)
[2018-04-19] MEDS: amLODIPine BESYLATE 5 MG TAB PO SCH (07:41)
[2018-04-19 08:00] VITALS: BP_SYST 117; BP_SYST 154; BP_DIAS 89; BP_DIAS 90
[2018-04-19] MEDS: metFORMIN HYDROCHLORIDE 500 MG TAB PO SCH ×2 (08:00→18:00)
[2018-04-19] MEDS ORDERED: diphenhdrAMINE HCL 50 MG/1 ML VL IV ONE (08:00)
[2018-04-19] MEDS ORDERED: IODIXANOL 320MG/ML 100ML BTL IV ONE ×2 (08:21→10:45)
[2018-04-19] MEDS ORDERED: LIDOCAINE 2% (LOCAL ANESTH.) PF 5ml SDV ONE (08:21)
[2018-04-19] MEDS ORDERED: ANGIOMAX 250 MG VIAL IV ONE (09:29)
[2018-04-19] MEDS ORDERED: MIDAZOLAM HCL 1MG/1ML-2 ML VIAL ONE (09:30)
[2018-04-19] MEDS ORDERED: SODIUM CHL 0.9% 0 ML ONE (09:30)
[2018-04-19] MEDS ORDERED: fentaNYL CITRATE 100 MCG/2 ML VL ONE (09:30)
[2018-04-19] MEDS: FAMOTIDINE 20 MG TAB PO SCH ×2 (10:00→21:02)
[2018-04-19] MEDS: ENOXAPARIN SOD 30 MG/0.3 ML SYRINGE SC SCH (10:00)
[2018-04-19] MEDS: HYDROcodone-ACET 5/325MG TAB PO PRN (11:27)
[2018-04-19] MEDS: PANTOPRAZOLE 40 MG TAB PO SCH (12:59)
[2018-04-19 16:00] VITALS: BP 113/79
[2018-04-19 21:38] VITALS: BP 136/81
[2018-04-20 05:16] VITALS: BP 129/75
[2018-04-20] MEDS: LEVOTHYROXINE SODIUM 25 MCG TAB PO SCH (06:56)
[2018-04-20 08:00] VITALS: BP 147/78
[2018-04-20] MEDS: metFORMIN HYDROCHLORIDE 500 MG TAB PO SCH (08:00)
[2018-04-20] MEDS: amLODIPine BESYLATE 5 MG TAB PO SCH (09:22)
[2018-04-20] MEDS: ENOXAPARIN SOD 30 MG/0.3 ML SYRINGE SC SCH (09:22)
[2018-04-20] MEDS: PANTOPRAZOLE 40 MG TAB PO SCH (09:22)
[2018-04-20] MEDS: FAMOTIDINE 20 MG TAB PO SCH (09:23)
[2018-04-20 10:23] VITALS: BP 147/78
[2018-04-20 12:00] VITALS: BP 109/63
== END 2018-04-20 12:20 | disposition home or self-care (01) | DRG 286 ==
LOC: ER 17:11 → EDBD 17:11 → OVERFLOW 17:12 → CENTRAL 04-12 14:04
PROVIDERS: ADMIT Nurse Practitioner Family; ATTEND Internal Medicine
PROC: 4A023N8 Measurement of Cardiac Sampling and Pressure, Bilateral, Percutaneous Approach (ICD-10-PCS; principal; 2018-04-19)
PROC: B2151ZZ Fluoroscopy of Left Heart using Low Osmolar Contrast (ICD-10-PCS; 2018-04-19)
PROC: B2111ZZ Fluoroscopy of Multiple Coronary Arteries using Low Osmolar Contrast (ICD-10-PCS; 2018-04-19)
DX: I25.10 Atherosclerotic heart disease of native coronary artery without angina pectoris (principal); N17.0 Acute kidney failure with tubular necrosis; G93.41 Metabolic encephalopathy; N30.01 Acute cystitis with hematuria; I69.351 Hemiplegia and hemiparesis following cerebral infarction affecting right dominant side; I08.0 Rheumatic disorders of both mitral and aortic valves; E03.9 Hypothyroidism, unspecified; E11.22 Type 2 diabetes mellitus with diabetic chronic kidney disease; E78.00 Pure hypercholesterolemia, unspecified; E78.5 Hyperlipidemia, unspecified; E86.0 Dehydration; F32.9 Major depressive disorder, single episode, unspecified; F03.90 Unspecified dementia, unspecified severity, without behavioral disturbance, psychotic disturbance, mood disturbance, and anxiety; I12.9 Hypertensive chronic kidney disease with stage 1 through stage 4 chronic kidney disease, or unspecified chronic kidney disease; J98.4 Other disorders of lung; K21.9 Gastro-esophageal reflux disease without esophagitis; N18.3 Chronic kidney disease, stage 3 (moderate); M41.9 Scoliosis, unspecified; Z96.611 Presence of right artificial shoulder joint; Z79.84 Long term (current) use of oral hypoglycemic drugs; Z90.710 Acquired absence of both cervix and uterus; Z95.2 Presence of prosthetic heart valve; Z79.899 Other long term (current) drug therapy; Z90.89 Acquired absence of other organs
CPT/HCPCS: 36415; 70450; 71045; 73030; 80048; 80053; 81001; 82962; 83735; 84484; 85025; 85610; 85730; 87086; 93005; 93306; 93460; 93886; 94761; 96361; 96374; 97110; 97116; 97530; 99152; A6257; C1751; C9113; J0696; J1815; J2001; J2250; Q9967

== ENCOUNTER 2019-04-19 00:50 | Inpatient (IN) | payer OTHER | END 2019-04-22 14:45 | disposition hospice, home (50) | LOC: WEST WING 00:50 → TELE-WESTW 06:26 | DX: R29.810 Facial weakness (principal); I63.9 Cerebral infarction, unspecified; S22.31XA Fracture of one rib, right side, initial encounter for closed fracture; G81.91 Hemiplegia, unspecified affecting right dominant side; Z86.73 Personal history of transient ischemic attack (TIA), and cerebral infarction without residual deficits; E11.9 Type 2 diabetes mellitus without complications; E78.5 Hyperlipidemia, unspecified; E03.9 Hypothyroidism, unspecified; I10 Essential (primary) hypertension; K21.9 Gastro-esophageal reflux disease without esophagitis; I25.10 Atherosclerotic heart disease of native coronary artery without angina pectoris; F03.90 Unspecified dementia, unspecified severity, without behavioral disturbance, psychotic disturbance, mood disturbance, and anxiety; S01.81XA Laceration without foreign body of other part of head, initial encounter; Z79.84 Long term (current) use of oral hypoglycemic drugs ==

== ENCOUNTER 2020-04-21 04:00 | Inpatient (IN) | payer MEDICARE, OTHER ==
[~2020-04-21] VITALS: Ht 165.1 cm; Wt 52.9 kg
[~2020-04-21 04:00] MED LIST changes: -AMLO5TAB13 PO; +AMLO5TAB15 PO; +CARB25TA2 PO; -HCTZ25T PO; +HYDR-4833 PO; +LEVO50TA7 PO; -LEVOTHYROXINE PO; +LISI-275 PO; -LISI-646 PO; +POTA-220 PO; -POTA20TA53 PO; -SINEMET PO
[2020-04-21 05:01] LABS: Basophils # (auto) 0 10 ^3/uL (0-0.2); Basophils % (auto) 0.3 % (0.0-2.0); Eosinophils # (auto) 0.1 10 ^3/uL (0-0.8); Eosinophils % (auto) 0.5 % (0.0-7.0); Hematocrit 39.5 % (36.0-46.0); Hemoglobin 13.1 g/dL (12.2-16.2); Lymphocytes # (auto) 0.7 10 ^3/uL (0.4-5.4); Lymphocytes % (auto) 7.2 % (10.0-50.0); Mean Corpuscular Hemoglobin 30.6 pg (28.0-32.0); Mean Corpuscular Volume 92.8 fL (80.0-100.0); Monocytes # (auto) 0.5 10 ^3/uL (0-1.3); Monocytes % (auto) 5.4 % (0.0-12.0); Neutrophils # (auto) 8.8 10 ^3/uL (1.6-8.6); Neutrophils % (auto) 86.6 % (37.0-80.0); Nucleated Red Blood Cells % 0.1 %; Platelet Count (auto) 250 10^3/uL (140-450); Red Blood Cells 4.26 10^6/uL (4.0-5.20); Red Cell Distribution Width 13.9 % (11.8-14.3); White Blood Cell 10.1 10^3/uL (4.4-10.8)
[2020-04-21 05:16] LABS: INR 1.05 (0.9-1.15); Partial Thromboplastin Time 25.1 sec (23.0-31.2)
[2020-04-21 05:18] LABS: Albumin 3.3 g/dL (3.4-5.0); Anion Gap 10 (5-15); Aspartate Aminotransferase 15 U/L (15-37); BUN/Creatinine Ratio 23.8; Blood Urea Nitrogen 25 mg/dL (7-18); Calcium 8.8 mg/dL (8.5-10.1); Carbon Dioxide 24 mmol/L (21-32); Chloride 104 mmol/L (98-107); GFR African American 64 mL/min; GFR Non-African American 53 mL/min; Glucose 161 mg/dL (74-106); Magnesium 1.7 mg/dL (1.6-2.6); Potassium 3.4 mmol/L (3.5-5.1); Sodium 138 mmol/L (136-145)
[2020-04-21 05:23] LABS: Alanine Aminotransferase < 6 U/L (13-56); Alkaline Phosphatase 80 U/L (45-117); Bilirubin, Total 0.5 mg/dL (0.2-1.0); Total Protein 6.9 g/dL (6.4-8.2)
[2020-04-21] MEDS ORDERED: POTASSIUM EFFERVESENT TAB 25 MEQ PO ONE (10:30)
[2020-04-21] MEDS ORDERED: FUROSEMIDE 40 MG/4 ML VIAL IV ONE (10:30)
[2020-04-21 11:40] LABS: Urine Bacteria MANY /hpf (None Seen); Urine Blood Negative /uL (Negative); Urine Hyaline Cast FEW /lpf (0 - 2); Urine Mucus FEW (None Seen); Urine WBC 69 /hpf (0 - 5)
[2020-04-21] MEDS ORDERED: cefTRIAXone 1GM/50ML D5W 50 ML IV ONE (13:30)
[2020-04-21] MEDS ORDERED: MORPHINE SULF INJ 2 MG/ML SYRINGE 1ML IV PRN (14:00)
[2020-04-21] MEDS ORDERED: NITROGLYCERIN 0.4 MG SL TAB SL PRN (14:00)
[2020-04-21] MEDS ORDERED: ENOXAPARIN SOD 60 MG/0.6 ML SYRINGE SC ONE (14:00)
[2020-04-21 16:00] VITALS: BP 146/82
--- NOTE | 2020-04-21 16:00 | NUR ---
SONAM LOTT REGARDING PATIENTS COMPLAINTS OF PAIN AND PATIENT MED REC.
[2020-04-21] MEDS ORDERED: MUPIROCIN 2% OINT 15gm or 22gm TOP ONE (16:30)
[2020-04-21] MEDS ORDERED: METOPROLOL SUCCINATE XL 50 MG TAB PO ONE (16:30)
[2020-04-21] MEDS ORDERED: POTASSIUM CHL 20 Meq TABLET PO ONE (16:30)
[2020-04-21] MEDS ORDERED: DEXTROSE (50%) 50ML SYRG IV PRN (16:30)
[2020-04-21] MEDS: ACCU-CHEK COMFORT CURVE STRIP VI SCH ×2 (17:00→21:59)
[2020-04-21] MEDS: InsuLIN REG 1unit/0.01ml Soln (100units/ml) SC SCH ×2 (17:00→21:59)
--- NOTE | 2020-04-21 17:39 | NUR ---
ATTEMPTED TO CALL LAB FOR RESULTS OF COVID. NO ANSWER.
[2020-04-21] MEDS: FUROSEMIDE 20 MG/2 ML VIAL IV SCH (18:02)
--- NOTE | 2020-04-21 18:04 | NUR ---
SPOKE WITH CAREGIVER QUINCY, QUINCY CONFIRMED CURRENT MEDICATION LIST IS ACCURATE. PER QUINCY PATIENT IS A DNR. INSTRUCTED TO BRING COPY TO HOSPITAL.
--- NOTE | 2020-04-21 19:26 | NUR ---
REPORT GIVEN TO SHELIA MICHEL NOC. ALL QUESTIONS ANSWERED.
--- NOTE | 2020-04-21 20:05 | NUR ---
Patient transferred to room 219 bed B with all belongings via wheelchair accompanied by staff. Patient oriented to room and POC. She is now on telemetry box #38. Patient is A/O x3, instructed to call for assistance. Call light is within reach, side rails up x2, bed is in the lowest position, side rails up x2, bed alarm is on.
--- NOTE | 2020-04-21 20:30 | NUR ---
Patient was incontinent, had a large soft, brown BM. Patient cleaned and new linens placed. Repositioned for comfort, call light is within reach, will continue to monitor.
[2020-04-21 22:00] VITALS: BP 145/85
--- NOTE | 2020-04-21 22:25 | NUR ---
Patient was incontinent, had a moderate soft, brown BM. Patient cleaned and new linens placed. Repositioned for comfort, call light is within reach, will continue to monitor.
[2020-04-21] MEDS: ISOSORBIDE MONONITRATE IR 20 MG TAB PO SCH (22:54)
[2020-04-21] MEDS: CARBIDOPA W LEVODOPA 25/100mg TABLET PO SCH (22:54)
[2020-04-21] MEDS: ATORVASTATIN 20 MG TAB PO SCH (22:54)
[2020-04-21] MEDS: FAMOTIDINE 20 MG TAB PO SCH (22:54)
[2020-04-21] MEDS: MUPIROCIN 2% OINT 15gm or 22gm TOP SCH (22:55)
[2020-04-21] MEDS: ACETAMINOPHEN 325 MG TAB PO PRN (23:09)
[2020-04-22 05:00] VITALS: BP 144/84
[2020-04-22] MEDS: CARBIDOPA W LEVODOPA 25/100mg TABLET PO SCH ×3 (06:19→22:31)
[2020-04-22] MEDS: InsuLIN REG 1unit/0.01ml Soln (100units/ml) SC SCH ×4 (06:19→22:00)
[2020-04-22] MEDS: LEVOTHYROXINE SODIUM 25 MCG TAB PO SCH (06:19)
[2020-04-22] MEDS: ACCU-CHEK COMFORT CURVE STRIP VI SCH ×4 (06:19→22:32)
[2020-04-22] MEDS: ACETAMINOPHEN 325 MG TAB PO PRN ×2 (06:19→22:17)
[2020-04-22] MEDS: FUROSEMIDE 20 MG/2 ML VIAL IV SCH ×3 (06:19→18:58)
--- NOTE | 2020-04-22 07:30 | NUR ---
Opening Shift Note Assumed care of patient, awake and alert. No S/S of distress/SOB or pain. Instructed on POC and to call for assist PRN, will continue to monitor for changes Q1hr and PRN. Bed is locked, bed alarm on and in lowest position. Call light within reach.
[2020-04-22 08:00] VITALS: BP 153/88
[2020-04-22 09:00] VITALS: BP 153/88
[2020-04-22] MEDS ORDERED: cefTRIAXone 1GM/50ML D5W 50 ML IV SCH (09:00)
--- NOTE | 2020-04-22 09:17 | NUR ---
IV removal IV DC'd on left AC with clean sterile technique, catheter fully intact. Pressure dressing applied to site. Patient tolerated well. IV insertion IV access obtained, via clean sterile technique by inserting [20] gauge catheter at [RIGHT FOREARM] after [2] attempt(s). IV secured properly. No trauma to site. Patient tolerated well.
[2020-04-22] MEDS: AZITHROMYCIN 500MG/ 250ML 250 ML IV SCH (10:06)
[2020-04-22] MEDS: SERTRALINE HCL 50 MG TAB PO SCH (10:07)
[2020-04-22] MEDS: ASPirin 81 mg TAB PO SCH (10:07)
[2020-04-22] MEDS: FAMOTIDINE 20 MG TAB PO SCH (10:07)
[2020-04-22] MEDS: POTASSIUM CHL 20 Meq TABLET PO SCH (10:08)
[2020-04-22] MEDS: METOPROLOL SUCCINATE XL 50 MG TAB PO SCH (10:08)
[2020-04-22] MEDS: LISINOPRIL 10 MG TAB PO SCH (10:09)
[2020-04-22] MEDS: MUPIROCIN 2% OINT 15gm or 22gm TOP SCH ×2 (10:09→22:45)
[2020-04-22] MEDS: ISOSORBIDE MONONITRATE IR 20 MG TAB PO SCH ×2 (12:54→22:45)
[2020-04-22 13:00] VITALS: BP 128/74
--- NOTE | 2020-04-22 13:00 | NUR ---
DR. STARK AT BEDSIDE FOR CARDIOLOGY CONSULT. DR. STARK SPOKE TO PATIENT REGARDING LEFT AND RIGHT HEART CATHETERIZATION. PATIENT QUESTIONS AND CONCERNS REGARDING PROCEDURE ANSWERED. WILL HAVE PATIENT SIGN CONSENTS FOR PROCEDURE. DR. STARK STATED PATIENT WILL HAVE PROCEDURE TOMORROW 04/23/2020 AFTERNOON.
--- NOTE | 2020-04-22 13:10 | NUR ---
PATIENT COMPLAIN OF NAUSEA. DR. JOHNS PAGED IN REGARDS TO PATIENT C/O NAUSEA. NEW ORDER RECEIVED FOR NAUSEA MEDICATION. WILL CONTINUE WITH POC.
[2020-04-22] MEDS ORDERED: ONDANSETRON HCL 4 MG/2 ML VIAL IV PRN (13:15)
--- NOTE | 2020-04-22 15:30 | NUR ---
PHONE CALL RECEIVED FROM LAB FOR POSITIVE BLOOD CULTURE. DR. JOHNS WILL BE PAGED REGARDING POSITIVE BLOOD CULTURE. WILL AWAIT PHONE CALL.
--- NOTE | 2020-04-22 15:50 | NUR ---
DR. JOHNS RETURNED PHONE CALL REGARDING BLOOD CULTURES POSITIVE FOR GRAM NEGATIVE RODS. NEW ORDER RECEIVED OF MEROPENEM 500 MG IV Q8HR. THE FIRST DOSE TO BE GIVEN NOW. DR. JOHNS WOULD LIKE PHARMACIST TO BE NOTIFIED AND FOLLOW GUIDELINES PER PHARMACY REGARDING IV ANTIBIOTICS. WILL CONTINUE TO MONITOR PATIENT. PHONE CALL MADE PHARMACY REGARDING NEW IV MED ORDER. PER PHARMACY ROCEPHIN IV TO BE D/C. WILL VERIFY DOSE OF MEROPENEM BASED ON PATIENTS KIDNEY FUNCTION. WILL AWAIT MEDICATION.
[2020-04-22] MEDS ORDERED: MEROPENEM 500MG IVPB 50 ML IV ONE (16:00)
[2020-04-22 16:37] VITALS: BP 131/57
--- NOTE | 2020-04-22 19:40 | NUR ---
Opening Shift Note Assumed care of patient, awake and alert. No S/S of distress/SOB or pain. Discussed on POC and to be NPO after MN. Patient for [facility] tomorrow. Patient verbalized understanding. Instructed to call for assist PRN, bed in lowest and locked position, bed alarm on, call light within reach, will continue to monitor for changes Q1hr and PRN.
--- NOTE | 2020-04-22 22:25 | NUR ---
Noted redness on left breast. Per patient, it started few weeks ago. Photos taken for reference. Cleansed wound with NS and applied z-guard. Left open to air. Placed wound consult, will continue to monitor
[2020-04-22] MEDS: ATORVASTATIN 20 MG TAB PO SCH (22:31)
[2020-04-22] MEDS: MEROPENEM 1GM IVPB 100 ML IV SCH (22:31)
[2020-04-23 05:00] VITALS: BP 137/70
[2020-04-23] MEDS: ACETAMINOPHEN 325 MG TAB PO PRN ×2 (05:15→14:30)
[2020-04-23] MEDS: CARBIDOPA W LEVODOPA 25/100mg TABLET PO SCH ×3 (05:16→22:20)
[2020-04-23] MEDS: FUROSEMIDE 20 MG/2 ML VIAL IV SCH ×2 (05:16→17:45)
[2020-04-23] MEDS: LEVOTHYROXINE SODIUM 25 MCG TAB PO SCH (06:07)
[2020-04-23] MEDS: ACCU-CHEK COMFORT CURVE STRIP VI SCH ×4 (06:07→22:20)
[2020-04-23] MEDS: InsuLIN REG 1unit/0.01ml Soln (100units/ml) SC SCH ×4 (06:07→22:00)
[2020-04-23 09:00] VITALS: BP 143/81
[2020-04-23] MEDS: MEROPENEM 1GM IVPB 100 ML IV SCH (10:00)
--- NOTE | 2020-04-23 10:15 | NUR ---
WOUND CARE NOTE: WOUND CARE IN TO SEE PATIENT PER WOUND CARE REQUEST. PATIENT ADMITTED TO [facility] FOR ACUTE PNEUMONIA AND CHEST PAIN R/O ACS. BEDSIDE NURSE NOTED SKIN INTEGRITY ISSUES UPON ADMISSION. PHOTOGRAPHS TAKEN AT THAT TIME FOR REFERENCE. PATIENT JOHN SCORE IS 15. PATIENT NOTED TO HAVE INTERTRIGINOUS RASH TO RIGHT BREAST FOLD. CLEANSED WITH NORMAL SALINE, PATTED DRY, ZGUARD MOISTURE BARRIER CREAM APPLIED. PATIENT ALSO NOTED TO HAVE AN ULCERATION ON THE TOP OF HER HEAD MEASURING 4.5x5 cm. NO DRAINAGE NOTED. PATIENT STATES "I HIT MY HEAD SOME TIME AGO". CLEANSED WITH NORMAL SALINE, PATTED DRY WITH STERILE GAUZE, THERAHONEY APPLIED, COVERED WITH OPTIFOAM GENTLE DRESSING. NO OTHER SKIN INTEGRITY ISSUES NOTED. RECOMMEND: FREQUENT Q2HOUR REPOSITIONING CONDITION PERMITS. REDISTRIBUTE PRESSURE UTILIZING PILLOWS AND WEDGES. BID/PRN MOISTURE BARRIER CREAM TO RIGHT BREAST INTERTRIGO. DAILY/PRN DRESSING CHANGE TO HEAD. SKIN/WOUND CARE PLAN. CONTINUED MONITORING BY WOUND CARE TEAM. Addendum: 04/23/20 at 1359 by YOSEF LARSON RN RN Amended: Links added.
[2020-04-23] MEDS: FAMOTIDINE 20 MG TAB PO SCH (10:39)
[2020-04-23] MEDS: ASPirin 81 mg TAB PO SCH (10:39)
[2020-04-23] MEDS: SERTRALINE HCL 50 MG TAB PO SCH (10:39)
[2020-04-23] MEDS: METOPROLOL SUCCINATE XL 50 MG TAB PO SCH (10:40)
[2020-04-23] MEDS: POTASSIUM CHL 20 Meq TABLET PO SCH (10:41)
[2020-04-23] MEDS: AZITHROMYCIN 500MG/ 250ML 250 ML IV SCH (10:42)
[2020-04-23] MEDS: ISOSORBIDE MONONITRATE IR 20 MG TAB PO SCH ×2 (10:42→22:18)
[2020-04-23] MEDS: LISINOPRIL 10 MG TAB PO SCH (10:52)
[2020-04-23] MEDS: MUPIROCIN 2% OINT 15gm or 22gm TOP SCH ×2 (11:08→22:20)
[2020-04-23] MEDS ORDERED: LIDOCAINE 2%HCL (LOCAL ANESTH.) INJ 20ML MDV ONE (12:28)
[2020-04-23] MEDS ORDERED: IOHEXOL 350 MG/ML 100ML IJ ONE (12:28)
--- NOTE | 2020-04-23 12:30 | NUR ---
BIOLOGY TUTOR PATIENT TRANSPORTED VIA HOSPITAL BED, TOLERATED WELL. DENIED PAIN, NO SOB OR DISTRESS.
[2020-04-23] MEDS ORDERED: fentaNYL CITRATE 100 MCG/2 ML VL ONE (12:52)
[2020-04-23] MEDS ORDERED: MIDAZOLAM HCL 1MG/1ML-2 ML VIAL ONE (12:52)
[2020-04-23 13:00] VITALS: BP 126/76
--- NOTE | 2020-04-23 13:14 | NUR ---
Opening Shift Note Assumed care of patient, awake and alert. Lung sounds clear to bases. No S/S of distress/SOB or pain. Bed in lowest position and locked call light in reach. Instructed on POC and to call for assist PRN, will continue to monitor for changes Q1hr and PRN.
[2020-04-23] MEDS ORDERED: CLOPIDOGREL 300 MG TAB ONE (13:25)
--- NOTE | 2020-04-23 13:57 | NUR ---
Patient brought to recovery via bed, report received from ANAND Marie. Patient is AOx4, no s/s of distress/SOB, and is currently in flat supine position.Right groin site is benign no s/s of bleeding or hematoma formation, dressing in place and is CDI. Patient verbalized understanding to post-procedure care and flat time instructions. Positive circulation noted to BLE.
--- NOTE | 2020-04-23 14:15 | NUR ---
Patient resting in bed, no s/s of distress. Breaths are even and unlabored. Right groin site remains unchanged.
--- NOTE | 2020-04-23 14:22 | NUR ---
Report given to primary RN, Doc.
--- NOTE | 2020-04-23 14:55 | NUR ---
Patient taken to telemetry unit via bed, correspondence transcriber in place. No s/s of distress noted upon departure. Primary RNDoc present at bedside to witness right groin site, benign, no s/s of bleeding or hematoma. Bed is set in lowest locked position with side rails up x 2, call light is within reach and bed alarm set on for safety. Care endorsed to ANAND Roach.
--- NOTE | 2020-04-23 15:14 | NUR ---
assessment Patient is a 84 year old female who is not answering questions. Per patients MARY Dalal and Mireya Sharma prior to admission patient resided at [facility] [phone] and functioned with assistance from [facility] [phone]. Per Mireya the [facility] called 911 due to patient having chest pain. Per Mireya patient will return to [facility] on discharge and resume hospice. I informed Mireya I will continue to monitor and follow up as appropriate. Mireya verbalized understanding and agreed to discharge plan home on hospice. Addendum: 04/23/20 at 1521 by Selina NINA Amended: Links added.
[2020-04-23 17:00] VITALS: BP 153/68
--- NOTE | 2020-04-23 19:27 | NUR ---
ensorsed care to night rn
--- NOTE | 2020-04-23 19:45 | NUR ---
Opening Shift Note Assumed care of patient, awake and alert. No S/S of distress/SOB or pain. Safety measures maintained by keeping the bed locked in lowest position, 2 side rails up, personal items and call light within reach. Instructed on POC and to call for assist PRN, will continue to monitor for changes Q1hr and PRN.
[2020-04-23 22:00] VITALS: BP 136/80
[2020-04-23] MEDS: ATORVASTATIN 20 MG TAB PO SCH (22:19)
[2020-04-24] MEDS: MEROPENEM 1GM IVPB 100 ML IV SCH (00:08)
[2020-04-24 05:00] VITALS: BP 153/79
[2020-04-24] MEDS: ACETAMINOPHEN 325 MG TAB PO PRN ×3 (05:02→22:18)
[2020-04-24] MEDS: InsuLIN REG 1unit/0.01ml Soln (100units/ml) SC SCH ×4 (06:13→22:00)
[2020-04-24] MEDS: ACCU-CHEK COMFORT CURVE STRIP VI SCH ×4 (06:14→22:19)
[2020-04-24] MEDS: LEVOTHYROXINE SODIUM 25 MCG TAB PO SCH (06:21)
[2020-04-24] MEDS: CARBIDOPA W LEVODOPA 25/100mg TABLET PO SCH ×3 (06:21→22:19)
[2020-04-24] MEDS: FUROSEMIDE 20 MG/2 ML VIAL IV SCH ×2 (06:22→17:23)
--- NOTE | 2020-04-24 07:55 | NUR ---
Opening Shift Note Assumed care of patient, awake and alert. S/P right heart cath right groin dressing dry intact with no tenderness present. Lung sounds clear to bases. No S/S of distress/SOB or pain. Bed in lowest position and locked call light in reach. Instructed on POC and to call for assist PRN, will continue to monitor for changes Q1hr and PRN.
[2020-04-24 08:37] VITALS: BP 130/68
--- NOTE | 2020-04-24 10:00 | NUR ---
dressing to head changed. cleansed with NS, pat dry with sterile gauze appled thera honey; patient tolerated well.
--- NOTE | 2020-04-24 10:00 | NUR ---
right breast fold cleansed area with normal saline, applied barrier cream patient tolerated well.
[2020-04-24] MEDS: AZITHROMYCIN 500MG/ 250ML 250 ML IV SCH (10:20)
[2020-04-24] MEDS: ISOSORBIDE MONONITRATE IR 20 MG TAB PO SCH ×2 (10:21→22:19)
[2020-04-24] MEDS: LISINOPRIL 10 MG TAB PO SCH (10:22)
[2020-04-24] MEDS: FAMOTIDINE 20 MG TAB PO SCH (10:22)
[2020-04-24] MEDS: ASPirin 81 mg TAB PO SCH (10:22)
[2020-04-24] MEDS: POTASSIUM CHL 20 Meq TABLET PO SCH (10:23)
[2020-04-24] MEDS: SERTRALINE HCL 50 MG TAB PO SCH (10:23)
[2020-04-24] MEDS: METOPROLOL SUCCINATE XL 50 MG TAB PO SCH (10:23)
[2020-04-24] MEDS: CLOPIDOGREL BISULFATE 75 MG TAB PO SCH (10:24)
[2020-04-24] MEDS ORDERED: CEFTRIAXONE SODIUM 2 GM in D5W 5% 50 ML IV ONE (10:30)
--- NOTE | 2020-04-24 10:30 | NUR ---
Dr. Adilia Lopez at bedside no new orders.
[2020-04-24] MEDS: MUPIROCIN 2% OINT 15gm or 22gm TOP SCH ×2 (10:58→22:19)
--- NOTE | 2020-04-24 11:38 | NUR ---
Nutrition Assessment Notes please see attached link for complete assessment Est Energy needs BW 52 [id number] kcals (25-30 kcal/kgBW), Est Protein needs: 52-57 gms/day (1.0-1.1 gm/kgBW). Will continue to monitor and reassess prn. Addendum: 04/24/20 at [address] Amended: Links added.
[2020-04-24 13:00] VITALS: BP 123/79
[2020-04-24 17:00] VITALS: BP 135/77
[2020-04-24] MEDS: ATORVASTATIN 20 MG TAB PO SCH (22:18)
[2020-04-24 22:21] VITALS: BP 138/79
[2020-04-25 05:05] VITALS: BP 144/70
[2020-04-25] MEDS: CARBIDOPA W LEVODOPA 25/100mg TABLET PO SCH ×3 (05:25→22:26)
[2020-04-25] MEDS: FUROSEMIDE 20 MG/2 ML VIAL IV SCH ×2 (05:25→17:51)
[2020-04-25] MEDS: ACETAMINOPHEN 325 MG TAB PO PRN ×3 (05:48→20:12)
--- NOTE | 2020-04-25 06:00 | NUR ---
WOUND CARE TO TOP OF HEAD. PATIENT TOLERATED WELL. WILL CONTINUE TO MONITOR Q1 AND PRN.
[2020-04-25] MEDS: InsuLIN REG 1unit/0.01ml Soln (100units/ml) SC SCH ×4 (06:34→22:00)
[2020-04-25] MEDS: ACCU-CHEK COMFORT CURVE STRIP VI SCH ×4 (06:34→22:00)
[2020-04-25] MEDS: LEVOTHYROXINE SODIUM 25 MCG TAB PO SCH (06:35)
--- NOTE | 2020-04-25 07:15 | NUR ---
END OF SHIFT NOTE WILL ENDORSE CARE TO DAYSHIFT RN. AT THIS TIME PATIENT HAS NO S/S OF DISTRESS OR SOB.
[2020-04-25] MEDS: cefTRIAXone 1GM/50ML D5W 50 ML IV SCH (08:51)
[2020-04-25] MEDS: POTASSIUM CHL 20 Meq TABLET PO SCH (08:53)
[2020-04-25] MEDS: LISINOPRIL 10 MG TAB PO SCH (08:55)
[2020-04-25] MEDS: FAMOTIDINE 20 MG TAB PO SCH (08:55)
[2020-04-25] MEDS: METOPROLOL SUCCINATE XL 50 MG TAB PO SCH (08:56)
[2020-04-25 09:00] VITALS: BP 130/66
[2020-04-25] MEDS: SERTRALINE HCL 50 MG TAB PO SCH (09:15)
[2020-04-25] MEDS: ASPirin 81 mg TAB PO SCH (09:15)
[2020-04-25] MEDS: CLOPIDOGREL BISULFATE 75 MG TAB PO SCH (09:15)
[2020-04-25] MEDS: MUPIROCIN 2% OINT 15gm or 22gm TOP SCH ×2 (10:27→22:30)
[2020-04-25] MEDS: AZITHROMYCIN 500MG/ 250ML 250 ML IV SCH (10:27)
[2020-04-25] MEDS: ISOSORBIDE MONONITRATE IR 20 MG TAB PO SCH ×2 (10:45→22:29)
[2020-04-25 12:31] VITALS: BP 124/76
[2020-04-25 16:26] VITALS: BP 114/65
--- NOTE | 2020-04-25 19:35 | NUR ---
Opening Shift Note Assumed care of patient, awake and alert. No S/S of distress/SOB. Complained of mild headache at this time. Discussed on POC and to call for assist PRN, patient verbalized understanding. Bed in lowest position, siderails up x2, bed alarm on, call light within reach, will continue to monitor for changes Q1hr and PRN.
[2020-04-25 21:00] VITALS: BP 124/67
[2020-04-25] MEDS: ATORVASTATIN 20 MG TAB PO SCH (22:26)
[2020-04-26 05:00] VITALS: BP 139/81
[2020-04-26] MEDS: InsuLIN REG 1unit/0.01ml Soln (100units/ml) SC SCH ×2 (06:02→11:30)
[2020-04-26] MEDS: ACCU-CHEK COMFORT CURVE STRIP VI SCH ×2 (06:02→14:11)
[2020-04-26] MEDS: CARBIDOPA W LEVODOPA 25/100mg TABLET PO SCH ×2 (06:03→14:11)
[2020-04-26] MEDS: FUROSEMIDE 20 MG/2 ML VIAL IV SCH (06:03)
[2020-04-26] MEDS: LEVOTHYROXINE SODIUM 25 MCG TAB PO SCH (06:03)
--- NOTE | 2020-04-26 06:36 | NUR ---
Attempted to insert a new IV but unsuccessful, will try later
[2020-04-26] MEDS: cefTRIAXone 1GM/50ML D5W 50 ML IV SCH (09:03)
[2020-04-26 09:08] VITALS: BP 130/70
[2020-04-26] MEDS: AZITHROMYCIN 500MG/ 250ML 250 ML IV SCH (09:34)
[2020-04-26] MEDS: ASPirin 81 mg TAB PO SCH (09:34)
[2020-04-26] MEDS: FAMOTIDINE 20 MG TAB PO SCH (09:35)
[2020-04-26] MEDS: CLOPIDOGREL BISULFATE 75 MG TAB PO SCH (09:35)
[2020-04-26] MEDS: SERTRALINE HCL 50 MG TAB PO SCH (09:35)
[2020-04-26] MEDS: ISOSORBIDE MONONITRATE IR 20 MG TAB PO SCH (09:35)
[2020-04-26] MEDS: MUPIROCIN 2% OINT 15gm or 22gm TOP SCH (09:36)
[2020-04-26] MEDS: LISINOPRIL 10 MG TAB PO SCH (09:36)
--- NOTE | 2020-04-26 11:33 | NUR ---
D/C Planning Per [facility] consult for patient to return to board and care and resume hospice. Faxed clinical information to [facility]. Per Farooq with [facility] order has been received and they will resume service upon d/c day. Transportation has been arranged with [facility] transport via [employer] . Informed ANAND Renteria.
[2020-04-26 12:46] VITALS: BP 121/73
[2020-04-26 14:24] VITALS: BP 130/70
--- NOTE | 2020-04-26 16:43 | NUR ---
IV REMOVED DRESSING APPLIED TO SITE. FRANCO CATHETER REMOVED AND TELE BOX SENT BACK TO ICU. DISCHARGE INSTRUCTIONS GIVEN PATIENT VERBALIZED UNDERSTANDING. TRANSPORTATION ARRANGED AND TAKING PATIENT HOME VIA [facility]URNEY NON EMERGENCY TRANSPORTATION [facility]. NO SIGNS OF DISTRESS.
== END 2020-04-26 16:45 | disposition hospice, home (50) | DRG 853 ==
LOC: EDUNIT# 04:00 → EDBD 04:00 → ER 04:00 → TELE 04:01 → TELE-EAST 15:35 → TELE-CENTR 20:06
PROVIDERS: ADMIT Hospitalist; ATTEND Family Medicine
PROC: 027135Z Dilation of Coronary Artery, Two Arteries with Two Drug-eluting Intraluminal Devices, Percutaneous Approach (ICD-10-PCS; principal; 2020-04-23)
PROC: B2151ZZ Fluoroscopy of Left Heart using Low Osmolar Contrast (ICD-10-PCS; 2020-04-23)
PROC: 4A023N8 Measurement of Cardiac Sampling and Pressure, Bilateral, Percutaneous Approach (ICD-10-PCS; 2020-04-23)
PROC: B2111ZZ Fluoroscopy of Multiple Coronary Arteries using Low Osmolar Contrast (ICD-10-PCS; 2020-04-23)
DX: A41.51 Sepsis due to Escherichia coli [E. coli] (principal); J96.20 Acute and chronic respiratory failure, unspecified whether with hypoxia or hypercapnia; I21.4 Non-ST elevation (NSTEMI) myocardial infarction; N17.0 Acute kidney failure with tubular necrosis; I50.23 Acute on chronic systolic (congestive) heart failure; J16.8 Pneumonia due to other specified infectious organisms; J44.0 Chronic obstructive pulmonary disease with (acute) lower respiratory infection; C34.90 Malignant neoplasm of unspecified part of unspecified bronchus or lung; E44.1 Mild protein-calorie malnutrition; G91.2 (Idiopathic) normal pressure hydrocephalus; N39.0 Urinary tract infection, site not specified; I13.0 Hypertensive heart and chronic kidney disease with heart failure and stage 1 through stage 4 chronic kidney disease, or unspecified chronic kidney disease; J44.1 Chronic obstructive pulmonary disease with (acute) exacerbation; G91.9 Hydrocephalus, unspecified; Z68.1 Body mass index [BMI] 19.9 or less, adult; E03.9 Hypothyroidism, unspecified; E11.22 Type 2 diabetes mellitus with diabetic chronic kidney disease; E78.5 Hyperlipidemia, unspecified; E87.6 Hypokalemia; F32.9 Major depressive disorder, single episode, unspecified; G20 Parkinson's disease; N18.9 Chronic kidney disease, unspecified; K21.9 Gastro-esophageal reflux disease without esophagitis; F02.80 Dementia in other diseases classified elsewhere, unspecified severity, without behavioral disturbance, psychotic disturbance, mood disturbance, and anxiety; Z20.828 Contact with and (suspected) exposure to other viral communicable diseases; F41.9 Anxiety disorder, unspecified; E11.40 Type 2 diabetes mellitus with diabetic neuropathy, unspecified; E78.00 Pure hypercholesterolemia, unspecified; I08.0 Rheumatic disorders of both mitral and aortic valves; I25.10 Atherosclerotic heart disease of native coronary artery without angina pectoris; M41.9 Scoliosis, unspecified; E11.21 Type 2 diabetes mellitus with diabetic nephropathy; Z79.84 Long term (current) use of oral hypoglycemic drugs; Z90.710 Acquired absence of both cervix and uterus; Z86.73 Personal history of transient ischemic attack (TIA), and cerebral infarction without residual deficits; Z79.02 Long term (current) use of antithrombotics/antiplatelets; Z79.82 Long term (current) use of aspirin; Z98.61 Coronary angioplasty status; Z79.899 Other long term (current) drug therapy; Z79.891 Long term (current) use of opiate analgesic; Z79.01 Long term (current) use of anticoagulants; Z79.4 Long term (current) use of insulin
CPT/HCPCS: 36415; 70450; 71045; 80053; 81001; 82565; 82962; 83605; 83735; 83880; 84443; 84484; 85025; 85379; 85610; 85730; 87040; 87077; 87186; 87426; 92928; 92929; 93005; 93306; 93454; 93970; 99152; 99153; C1874; C1887; G0378; J0696; J1815; J2185; J2250; J2405; J7060

== ENCOUNTER → 2020-05-09 | Outpatient (CLI) | payer OTHER ==
[2020-05-09 10:22] LABS: Basophils # (auto) 0.1 10 ^3/uL (0-0.2); Eosinophils # (auto) 0.1 10 ^3/uL (0-0.8); Eosinophils % (auto) 0.8 % (0.0-7.0); Hematocrit 39.4 % (36.0-46.0); Hemoglobin 13.2 g/dL (12.2-16.2); Lymphocytes # (auto) 0.6 10 ^3/uL (0.4-5.4); Lymphocytes % (auto) 9.3 % (10.0-50.0); Mean Corpuscular Hemoglobin 30.8 pg (28.0-32.0); Mean Corpuscular Hgb Conc. 33.5 g/dL (32.0-36.0); Monocytes # (auto) 0.3 10 ^3/uL (0-1.3); Monocytes % (auto) 4.2 % (0.0-12.0); Neutrophils # (auto) 5.8 10 ^3/uL (1.6-8.6); Neutrophils % (auto) 84.7 % (37.0-80.0); Nucleated Red Blood Cells % 0.1 %; Platelet Count (auto) 261 10^3/uL (140-450); Red Blood Cells 4.28 10^6/uL (4.0-5.20); Red Cell Distribution Width 14.4 % (11.8-14.3); White Blood Cell 6.8 10^3/uL (4.4-10.8)
[2020-05-09 10:48] LABS: Potassium 4.1 mmol/L (3.5-5.1)
[2020-05-09 10:57] LABS: Albumin 3.4 g/dL (3.4-5.0); BUN/Creatinine Ratio 23.9; Bilirubin, Total 0.4 mg/dL (0.2-1.0); Calcium 8.8 mg/dL (8.5-10.1); Total Protein 6.6 g/dL (6.4-8.2)
[2020-05-09 10:58] LABS: Folate (Folic Acid) 17.08 ng/mL (5.38-24)
[2020-05-10 05:07] LABS: RPR Non Reactive (Non Reactive)
== END | disposition home or self-care (01) ==
LOC: LAB 09:53
PROVIDERS: ATTEND Internal Medicine
DX: I10 Essential (primary) hypertension (principal); E11.3299 Type 2 diabetes mellitus with mild nonproliferative diabetic retinopathy without macular edema, unspecified eye; E78.5 Hyperlipidemia, unspecified; G30.9 Alzheimer's disease, unspecified
CPT/HCPCS: 36415; 80053; 80061; 82607; 82746; 83036; 84443; 85025; 85652; 86592

== ENCOUNTER 2020-05-29 05:39 | Inpatient (IN) | payer OTHER ==
[~2020-05-29] VITALS: Ht 154.9 cm; Wt 51.5 kg
[2020-05-29] MEDS ORDERED: cefTRIAXone 1GM/50ML D5W 50 ML IV ONE (09:15)
[2020-05-29] MEDS ORDERED: AZITHROMYCIN 500MG/ 250ML 250 ML IV ONE (09:15)
[2020-05-29 09:38] LABS: Basophils # (auto) 0 10 ^3/uL (0-0.2); Basophils % (auto) 0.3 % (0.0-2.0); Eosinophils # (auto) 0 10 ^3/uL (0-0.8); Eosinophils % (auto) 0.2 % (0.0-7.0); Hematocrit 28.2 % (36.0-46.0); Hemoglobin 9.4 g/dL (12.2-16.2); Lymphocytes # (auto) 0.3 10 ^3/uL (0.4-5.4); Lymphocytes % (auto) 4.6 % (10.0-50.0); Mean Corpuscular Hgb Conc. 33.4 g/dL (32.0-36.0); Mean Corpuscular Volume 92.8 fL (80.0-100.0); Monocytes # (auto) 0.3 10 ^3/uL (0-1.3); Monocytes % (auto) 4.7 % (0.0-12.0); Neutrophils % (auto) 90.2 % (37.0-80.0); Platelet Count (auto) 171 10^3/uL (140-450); Red Blood Cells 3.04 10^6/uL (4.0-5.20); Red Cell Distribution Width 14.9 % (11.8-14.3); White Blood Cell 6.7 10^3/uL (4.4-10.8)
[2020-05-29 09:59] LABS: Albumin 3.2 g/dL (3.4-5.0); BUN/Creatinine Ratio 26.2; Calcium 8.7 mg/dL (8.5-10.1); Potassium 4.2 mmol/L (3.5-5.1)
[2020-05-29 10:07] LABS: Urine Bacteria MOD /hpf (None Seen); Urine Blood Negative /uL (Negative); Urine Mucus FEW (None Seen); Urine Specific Gravity 1.021 (1.001-1.035); Urine WBC 11 /hpf (0 - 5)
[2020-05-29 10:08] LABS: Bilirubin, Total 0.3 mg/dL (0.2-1.0); Total Protein 6.2 g/dL (6.4-8.2)
[2020-05-29] MEDS ORDERED: DEXTROSE (50%) 50ML SYRG IV PRN (10:45)
[2020-05-29] MEDS ORDERED: MORPHINE SULF INJ 2 MG/ML SYRINGE 1ML IV PRN (10:45)
[2020-05-29] MEDS ORDERED: ACETAMINOPHEN 500 MG TAB PO PRN (10:45)
[2020-05-29] MEDS ORDERED: NITROGLYCERIN 0.4 MG SL TAB SL PRN (10:45)
[2020-05-29] MEDS ORDERED: FUROSEMIDE 20 MG/2 ML VIAL IV ONE (11:00)
[2020-05-29 11:12] LABS: CRP High Sensitivity 0.64 mg/dL (< 0.3); Magnesium 2.5 mg/dL (1.6-2.6)
--- NOTE | 2020-05-29 11:20 | NUR ---
Telemetry admit from ER [facility] admitted to Telemetry unit after SBAR received. Patient oriented to JOSUE HARPER, RN primary RN, unit, room, bed, and unit policies regarding patient care and visiting hours. Patient now on continuous telemetry monitoring, tele box #8. Patient placed on bedside oxygen, weighed by bedscale and encouraged to call if they need something. All questions and concerns addressed, patient verbalized understanding. VS: 97.8, 85, 18, 98%, 162/90. No complaints of pain or discomfort at this time. Blood pressure will be rechecked.
[2020-05-29] MEDS: InsuLIN REG 1unit/0.01ml Soln (100units/ml) SC SCH ×3 (11:30→22:00)
[2020-05-29] MEDS: ACCU-CHEK COMFORT CURVE STRIP VI SCH ×3 (11:50→22:11)
--- NOTE | 2020-05-29 11:50 | NUR ---
BP RECHECK Rechecked blood pressure, bp now 148/84. Will continue to monitor
[2020-05-29] MEDS ORDERED: LISI-706 PO (12:09)
[2020-05-29] MEDS ORDERED: MULT-1018 PO (12:09)
[2020-05-29] MEDS ORDERED: ASCO500T11 PO (12:09)
[2020-05-29] MEDS ORDERED: CLON0.1T PO (12:09)
[2020-05-29] MEDS ORDERED: AMLO10TA13 PO (12:09)
[2020-05-29] MEDS ORDERED: CLOP75TA41 PO (12:09)
[2020-05-29] MEDS ORDERED: LEVO75TA6 PO (12:09)
[2020-05-29] MEDS ORDERED: CAR25T PO (12:09)
[2020-05-29] MEDS ORDERED: ASPI-498 PO (12:20)
[2020-05-29 12:51] VITALS: BP 162/90
[2020-05-29] MEDS ORDERED: ALBUTEROL SULF HFA 90MCG INH 200DOSE IN SCH (14:00)
[2020-05-29] MEDS: CARBIDOPA W LEVODOPA CR 25/100mg TABLET PO SCH ×2 (14:28→22:06)
--- NOTE | 2020-05-29 16:38 | NUR ---
Informed DRIVER GUIDE Junaid Weeks of patients bp of 166/88 and no scheduled bp meds until tomorrow. Junaid to place orders
[2020-05-29] MEDS ORDERED: cloNIDine HCL 0.1 MG TAB PO PRN (16:45)
[2020-05-29] MEDS ORDERED: LOSARTAN POTASSIUM 25 MG TAB PO ONE (16:45)
--- NOTE | 2020-05-29 16:45 | NUR ---
ANH Received call from bennie curtis swab being reran, results will take another 2 hours. Informed land developer
--- NOTE | 2020-05-29 16:46 | NUR ---
BP meds given for blood pressure of 166/88. Will continue to monitor
[2020-05-29 16:58] VITALS: BP 166/88
--- NOTE | 2020-05-29 18:09 | NUR ---
BP RECHECK Rechecked blood pressure, bp is 167/97, prn bp meds given. Will continue to monitor
--- NOTE | 2020-05-29 19:08 | NUR ---
Power of Nurse First Aid Spoke to caregiver, Jemima, from [facility]. She does not have a copy of the POA, but said the patients Aunt, Luís does. Tried calling the Aunt at [phone] to request the POA.
--- NOTE | 2020-05-29 19:20 | NUR ---
Spoke to patients Aunt Luís, Luís will have her daughter bring by the POA tomorrow
[2020-05-29 21:56] VITALS: BP 160/93
[2020-05-29] MEDS ORDERED: BUDESONIDE (INHALATION) 180 MCG IH IN SCH (22:00)
[2020-05-29] MEDS: ATORVASTATIN 20 MG TAB PO SCH (22:06)
[2020-05-29] MEDS: ACETAMINOPHEN 325 MG TAB PO PRN (22:07)
--- NOTE | 2020-05-29 23:01 | NUR ---
patient transferred to room 17B Full report given to RNJudy. Patient transferred via stretcher. No s/s of distress noted.
--- NOTE | 2020-05-29 23:05 | NUR ---
Transfer from [facility] admitted to Telemetry unit after SBAR received. Patient oriented to ALEJANDRA HARPER RN primary RN, unit, room, bed, and unit policies regarding patient care and visiting hours. Tele box #8 replaced with tele box #27 and telemetry reading on arrival to unit is SR in the 60s. Patient placed on bedside oxygen, weighed by bedscale and encouraged to call if they need something. Safety measures maintained by keeping the bed locked in lowest position, 2 side rails up, personal items and call light within reach. All questions and concerns addressed, patient verbalized understanding.
[2020-05-29 23:20] VITALS: BP 148/78
[2020-05-30 05:00] VITALS: BP 144/77
[2020-05-30] MEDS: ACCU-CHEK COMFORT CURVE STRIP VI SCH ×4 (06:08→21:49)
[2020-05-30] MEDS: InsuLIN REG 1unit/0.01ml Soln (100units/ml) SC SCH ×4 (06:08→21:51)
[2020-05-30 06:15] LABS: Basophils # (auto) 0 10 ^3/uL (0-0.2); Basophils % (auto) 0.8 % (0.0-2.0); Eosinophils # (auto) 0.1 10 ^3/uL (0-0.8); Eosinophils % (auto) 1.4 % (0.0-7.0); Hematocrit 37.1 % (36.0-46.0); Hemoglobin 12.3 g/dL (12.2-16.2); Lymphocytes # (auto) 0.9 10 ^3/uL (0.4-5.4); Mean Corpuscular Hemoglobin 30.5 pg (28.0-32.0); Mean Corpuscular Hgb Conc. 33.3 g/dL (32.0-36.0); Mean Corpuscular Volume 91.8 fL (80.0-100.0); Monocytes # (auto) 0.4 10 ^3/uL (0-1.3); Monocytes % (auto) 7.4 % (0.0-12.0); Neutrophils # (auto) 4.1 10 ^3/uL (1.6-8.6); Neutrophils % (auto) 74.4 % (37.0-80.0); Nucleated Red Blood Cells % 0.1 %; Platelet Count (auto) 215 10^3/uL (140-450); Red Blood Cells 4.04 10^6/uL (4.0-5.20); Red Cell Distribution Width 15.1 % (11.8-14.3); White Blood Cell 5.5 10^3/uL (4.4-10.8)
[2020-05-30 06:19] LABS: Albumin 2.8 g/dL (3.4-5.0); Potassium 3.4 mmol/L (3.5-5.1)
[2020-05-30 06:24] LABS: BUN/Creatinine Ratio 21.3; Bilirubin, Total 0.4 mg/dL (0.2-1.0); Total Protein 5.6 g/dL (6.4-8.2)
[2020-05-30] MEDS: LEVOTHYROXINE SODIUM 50 MCG TAB PO SCH (06:35)
[2020-05-30] MEDS: CARBIDOPA W LEVODOPA CR 25/100mg TABLET PO SCH ×3 (06:35→21:49)
[2020-05-30 09:00] VITALS: BP 153/85
[2020-05-30] MEDS: ZINC SULFATE 220mg CAP or TAB PO SCH (09:33)
[2020-05-30] MEDS: cefTRIAXone 1GM/50ML D5W 50 ML IV SCH (09:33)
[2020-05-30] MEDS: LOSARTAN POTASSIUM 25 MG TAB PO SCH (09:37)
[2020-05-30] MEDS: ASCORBIC ACID 1,000 MG TAB PO SCH (09:37)
[2020-05-30] MEDS: ENOXAPARIN SOD 40 MG/0.4 ML SYRINGE SC SCH (09:38)
[2020-05-30] MEDS: ACETAMINOPHEN 325 MG TAB PO PRN (09:39)
[2020-05-30] MEDS: amLODIPine BESYLATE 5 MG TAB PO SCH (09:44)
[2020-05-30] MEDS ORDERED: IOHEXOL 350 MG/ML 100ML IJ ONE (10:03)
[2020-05-30] MEDS ORDERED: POTASSIUM CHL 20 Meq TABLET PO ONE (12:00)
--- NOTE | 2020-05-30 12:00 | NUR ---
gave me an order for patient for Lasix IV 40mg TID and Potassium PO 40mg Once.Order repeatedfor confirmation to MD and entered .
[2020-05-30] MEDS: AZITHROMYCIN 500MG/ 250ML 250 ML IV SCH (12:03)
[2020-05-30 13:00] VITALS: BP 147/86
[2020-05-30] MEDS: FUROSEMIDE 40 MG/4 ML VIAL IV SCH ×2 (13:49→21:49)
[2020-05-30 17:00] VITALS: BP 134/81
--- NOTE | 2020-05-30 19:05 | NUR ---
Opening Shift Note Assumed care of patient, awake and alert x2 . Forgetful No S/S of distress/SOB or pain. Bed in low locked position, bed alarm on, call light within reach, non skid socks on. Pappas catheter in place, clean and dry, bag off the floor, patent and draining. securement device on, tubes no kink, Leaking. Instructed on POC and to call for assist PRN, will continue to monitor for changes Q1hr and PRN.
--- NOTE | 2020-05-30 20:30 | NUR ---
Checked patient's see catheter. It is draining good, patent but leaking. See catheter is a 16f , placed in with skin intact. Checked catheter's balloon only 8ml. Add in 2ml. Replaced soaked wet white pad with new dry one. Will keep on monitoring.
[2020-05-30] MEDS: ATORVASTATIN 20 MG TAB PO SCH (21:49)
[2020-05-30 22:00] VITALS: BP_SYST 148; BP_DIAS 68; BP_DIAS 86
--- NOTE | 2020-05-31 02:40 | NUR ---
Picture of the wound on the head taken.
[2020-05-31 05:00] VITALS: BP 151/88
[2020-05-31] MEDS: CARBIDOPA W LEVODOPA CR 25/100mg TABLET PO SCH ×2 (06:04→14:00)
[2020-05-31] MEDS: FUROSEMIDE 40 MG/4 ML VIAL IV SCH ×2 (06:05→14:00)
[2020-05-31] MEDS: LEVOTHYROXINE SODIUM 50 MCG TAB PO SCH (06:41)
[2020-05-31] MEDS: InsuLIN REG 1unit/0.01ml Soln (100units/ml) SC SCH ×3 (06:41→17:00)
[2020-05-31] MEDS: ACCU-CHEK COMFORT CURVE STRIP VI SCH ×3 (06:41→17:00)
--- NOTE | 2020-05-31 07:01 | NUR ---
Closing Shift Report Patient asleep right now. No SOB and no acute distress seen. bed in low locked position, call light within reach, non skid socks on. Fall precaution observed. Pappas catheter no leaking this time.
[2020-05-31 07:07] LABS: Calcium 8.6 mg/dL (8.5-10.1); Potassium 3.1 mmol/L (3.5-5.1)
[2020-05-31 07:10] LABS: BUN/Creatinine Ratio 19.8; Magnesium 2.2 mg/dL (1.6-2.6)
[2020-05-31 08:29] VITALS: BP 144/84
[2020-05-31] MEDS: cefTRIAXone 1GM/50ML D5W 50 ML IV SCH (09:10)
[2020-05-31] MEDS ORDERED: POTASSIUM CHLORIDE 20 MEQ, LIDOCAINE 1% (LOCAL ANESTH.) 2 ML in SODIUM CHL 0.9% 100 ML IV ONE (09:15)
[2020-05-31] MEDS ORDERED: POTASSIUM CHL 20 Meq TABLET PO ONE (09:15)
[2020-05-31] MEDS: amLODIPine BESYLATE 5 MG TAB PO SCH (09:16)
[2020-05-31] MEDS: ZINC SULFATE 220mg CAP or TAB PO SCH (09:16)
[2020-05-31] MEDS: LOSARTAN POTASSIUM 25 MG TAB PO SCH (09:16)
[2020-05-31] MEDS: ENOXAPARIN SOD 40 MG/0.4 ML SYRINGE SC SCH (09:17)
--- NOTE | 2020-05-31 09:35 | NUR ---
Assessment Patient is an 84 year old female. Per patient MARY Dalal and Mireya Sharma prior to admission patient resided at [facility] and functioned with assistance from [facility] . Mulugeta advised me to contact Caregiver Jemima with [facility] for more additional information. Placed call to Jemima . Per Jemima Patient has a walker, wheelchair, bedside commode, hospital bed and home oxygen. Per Jemima patient will return home to her prior living arrangements post discharge and she will transport patient home. Advised Jemima there is a social service consult to resume hospice. informed Jemima clinical information will be faxed to agency. Informed Jemima she has the right to participate in all discharge planning. Jemima verbalized understanding and agreed to discharge plan. Faxed clinical information to [facility] and they will resume service upon d/. Addendum: 05/31/20 at 0946 by RODRICK NINA Amended: Links added.
[2020-05-31] MEDS: AZITHROMYCIN 500MG/ 250ML 250 ML IV SCH (09:53)
[2020-05-31] MEDS: ASCORBIC ACID 1,000 MG TAB PO SCH (10:00)
[2020-05-31] MEDS ORDERED: ALUM & MAG HYDROX-SIMETH LIQ(MAALOX) 30 ML PO PRN (10:30)
[2020-05-31] MEDS ORDERED: LEVO500T21 PO (11:50)
[2020-05-31 12:30] VITALS: BP 142/81
[2020-05-31] MEDS: ACETAMINOPHEN 325 MG TAB PO PRN (14:31)
--- NOTE | 2020-05-31 14:54 | NUR ---
DISCHARGE INSTRUCTIONS GIVEN TO PT. VERBALIZED UNDERSTANDING AND ALL PAPERWORK SIGNED. IV AND TELE BOX REMOVED. PT DISCHARGED HOME.
[2020-05-31 16:52] VITALS: BP 149/85
[2020-05-31 17:13] VITALS: BP 116/61
--- NOTE | 2020-05-31 17:57 | NUR ---
PT CAREGIVER DAYSI NOTIFIED THAT PT IS READY FOR GEOLOGICAL E LOGGER.
[2020-06-01] MEDS ORDERED: ASCORBIC ACID 500 MG TAB PO SCH (10:00)
== END 2020-05-31 19:13 | disposition hospice, home (50) | DRG 280 ==
LOC: ER 05:39 → EDBD 05:39 → EDSEX 05:39 → TELE 05:40 → TELE-EAST 11:19 → TELE-CENTR 23:05
PROVIDERS: ADMIT Nurse Practitioner Acute Care; ATTEND Internal Medicine
DX: I21.4 Non-ST elevation (NSTEMI) myocardial infarction (principal); I50.23 Acute on chronic systolic (congestive) heart failure; J18.9 Pneumonia, unspecified organism; E44.1 Mild protein-calorie malnutrition; N30.90 Cystitis, unspecified without hematuria; R06.03 Acute respiratory distress; I35.0 Nonrheumatic aortic (valve) stenosis; E11.9 Type 2 diabetes mellitus without complications; D64.9 Anemia, unspecified; Z20.828 Contact with and (suspected) exposure to other viral communicable diseases; Z68.21 Body mass index [BMI] 21.0-21.9, adult; Z79.899 Other long term (current) drug therapy; Z86.73 Personal history of transient ischemic attack (TIA), and cerebral infarction without residual deficits; Z90.710 Acquired absence of both cervix and uterus
CPT/HCPCS: 36415; 71045; 71275; 80048; 80053; 81001; 82728; 82962; 83036; 83605; 83615; 83735; 83880; 84443; 84484; 85025; 85379; 86141; 86710; 87040; 87077; 87086; 87088; 87186; 87426; 93005; 93970; G0378; J0696; J1815; J2001

== ENCOUNTER 2020-06-19 05:45 | Inpatient (IN) | payer OTHER ==
[~2020-06-19] VITALS: Ht 162.6 cm; Wt 51.0 kg
[~2020-06-19 05:45] MED LIST changes: +AMLO10TA13 PO; -AMLO5TAB15 PO; +ASCO500T11 PO; +ASPI-498 PO; +CAR25T PO; -CARB25TA2 PO; +CLON0.1T PO; +CLOP75TA41 PO; +LEVO500T21 PO; -LEVO50TA7 PO; +LEVO75TA6 PO; -LISI-275 PO; +LISI-706 PO; +MULT-1018 PO
[2020-06-19 06:41] LABS: Basophils # (auto) 0 10 ^3/uL (0-0.2); Basophils % (auto) 0.5 % (0.0-2.0); Eosinophils # (auto) 0.1 10 ^3/uL (0-0.8); Eosinophils % (auto) 1.5 % (0.0-7.0); Hematocrit 38.9 % (36.0-46.0); Hemoglobin 12.7 g/dL (12.2-16.2); Lymphocytes # (auto) 0.8 10 ^3/uL (0.4-5.4); Lymphocytes % (auto) 9.5 % (10.0-50.0); Mean Corpuscular Hemoglobin 30.1 pg (28.0-32.0); Mean Corpuscular Hgb Conc. 32.6 g/dL (32.0-36.0); Mean Corpuscular Volume 92.3 fL (80.0-100.0); Monocytes # (auto) 0.4 10 ^3/uL (0-1.3); Monocytes % (auto) 4.6 % (0.0-12.0); Neutrophils # (auto) 6.9 10 ^3/uL (1.6-8.6); Neutrophils % (auto) 83.9 % (37.0-80.0); Platelet Count (auto) 234 10^3/uL (140-450); Red Blood Cells 4.21 10^6/uL (4.0-5.20); Red Cell Distribution Width 14.8 % (11.8-14.3); White Blood Cell 8.3 10^3/uL (4.4-10.8)
[2020-06-19 06:58] LABS: INR 1.08 (0.9-1.15); Partial Thromboplastin Time 24.1 sec (23.0-31.2)
[2020-06-19] MEDS ORDERED: methylPREDNISolone SOD SUCC 125 MG/2 ML VL IV ONE (07:00)
[2020-06-19] MEDS ORDERED: IPRATROPIUM BROM 0.5 MG/2.5ML INH SOL NEB ONE (07:00)
[2020-06-19] MEDS ORDERED: MAGNESIUM SULFATE 1GM/100ML 100 ML IV ONE (07:00)
[2020-06-19] MEDS ORDERED: ALBUTEROL SULF 2.5 MG/0.5ML(0.5%) NEB SOLN NEB ONE (07:00)
[2020-06-19 07:01] LABS: Albumin 3.2 g/dL (3.4-5.0); BUN/Creatinine Ratio 25.5; Calcium 8.6 mg/dL (8.5-10.1); Potassium 4.2 mmol/L (3.5-5.1)
[2020-06-19 07:06] LABS: Bilirubin, Total 0.4 mg/dL (0.2-1.0); Total Protein 6.6 g/dL (6.4-8.2)
[2020-06-19] MEDS ORDERED: ACETAMINOPHEN 500 MG TAB PO ONE (07:45)
[2020-06-19] MEDS ORDERED: IOHEXOL 300 MG/ML 100ML BOTTLE IJ ONE (08:13)
[2020-06-19] MEDS ORDERED: cefTRIAXone 1GM/50ML D5W 50 ML IV ONE (11:15)
[2020-06-19] MEDS ORDERED: AZITHROMYCIN 500MG/ 250ML 250 ML IV ONE (11:15)
[2020-06-19] MEDS ORDERED: FUROSEMIDE 40 MG/4 ML VIAL IV ONE (11:15)
[2020-06-19] MEDS ORDERED: IPRATROPIUM BROM 0.5 MG/2.5ML INH SOL NEB PRN (12:30)
[2020-06-19] MEDS ORDERED: MORPHINE SULF INJ 2 MG/ML SYRINGE 1ML IV PRN ×2 (12:30)
[2020-06-19] MEDS ORDERED: LISINOPRIL PO PRN (12:30)
[2020-06-19] MEDS ORDERED: HYDROCHLOROTHIAZI PO PRN (12:30)
[2020-06-19] MEDS ORDERED: NITROGLYCERIN 0.4 MG SL TAB SL PRN (12:30)
[2020-06-19] MEDS ORDERED: ALBUTEROL SULF 2.5 MG/0.5ML(0.5%) NEB SOLN NEB PRN (12:30)
[2020-06-19] MEDS ORDERED: DEXTROSE (50%) 50ML SYRG IV PRN (13:00)
[2020-06-19] MEDS ORDERED: CHOL20009 PO (13:37)
[2020-06-19] MEDS: CARBIDOPA W LEVODOPA 25/100mg TABLET PO SCH ×2 (15:23→22:59)
[2020-06-19] MEDS: HYDROcodone-ACET 5/325MG TAB PO SCH ×2 (15:45→22:07)
[2020-06-19] MEDS: InsuLIN REG 1unit/0.01ml Soln (100units/ml) SC SCH ×2 (17:00→22:00)
[2020-06-19] MEDS: ACCU-CHEK COMFORT CURVE STRIP VI SCH ×2 (17:30→23:01)
--- NOTE | 2020-06-19 18:08 | NUR ---
Respiratory note: NO PRN TX GIVEN AT THIS TIME, NOT INDICATED. PT CURRENTLY SLEEPING, NO SOB NOTED. PT IS ON 3L N/C, SPO2 100%, HR 65, RR 22.
[2020-06-19] MEDS: ONDANSETRON HCL 4 MG/2 ML VIAL IV PRN (20:08)
[2020-06-19 20:12] VITALS: BP 136/82
[2020-06-19 22:00] VITALS: BP 128/73
[2020-06-19] MEDS ORDERED: PATIENTS OWN MEDICATION (Simvastatin 20 MG) PO SCH (22:00)
[2020-06-19 22:20] VITALS: BP 128/73
[2020-06-19] MEDS: ATORVASTATIN 20 MG TAB PO SCH (23:00)
--- NOTE | 2020-06-20 00:02 | NUR ---
Collected MRSA swab and inhouse COVID swab via sterile technique.
--- NOTE | 2020-06-20 00:07 | NUR ---
Bulleted MRSA swab down to lab
--- NOTE | 2020-06-20 00:16 | NUR ---
Leaving the floor to walk COVID test to lab
[2020-06-20 05:00] VITALS: BP 129/82
[2020-06-20] MEDS: CARBIDOPA W LEVODOPA 25/100mg TABLET PO SCH ×3 (05:54→22:53)
[2020-06-20] MEDS: ACCU-CHEK COMFORT CURVE STRIP VI SCH ×4 (06:31→22:53)
[2020-06-20] MEDS: InsuLIN REG 1unit/0.01ml Soln (100units/ml) SC SCH ×4 (06:32→22:53)
--- NOTE | 2020-06-20 08:00 | NUR ---
Opening Shift Note Assumed care of patient, awake, alert and oriented X3, forgets what brought her in here. No S/S of distress/SOB, complains of a headache, informed will medicate. Tele# 27, sinus rhythm @ 74 bpm. IV to right forearm, 20 gauge, patent and saline locked. Urethral Pappas catheter draining clear, straw urine to gravity. Instructed on POC and to call for assist PRN, verbalized understanding. Bed locked, in lowest position, call light within reach, will continue to monitor for changes Q1hr and PRN.
[2020-06-20 08:46] VITALS: BP 119/74
[2020-06-20] MEDS: FAMOTIDINE 20 MG TAB PO SCH (09:09)
[2020-06-20] MEDS: ASPirin-EC 81 mg tab PO SCH (09:09)
[2020-06-20] MEDS: CLOPIDOGREL BISULFATE 75 MG TAB PO SCH (09:09)
[2020-06-20] MEDS: amLODIPine BESYLATE 5 MG TAB PO SCH (09:09)
[2020-06-20] MEDS: ACETAMINOPHEN 500 MG TAB PO PRN (09:10)
[2020-06-20] MEDS: HYDROcodone-ACET 5/325MG TAB PO PRN (11:16)
[2020-06-20] MEDS ORDERED: HYDROcodone-ACET 5/325MG TAB PO PRN (11:45)
[2020-06-20 12:20] VITALS: BP 129/85
[2020-06-20] MEDS ORDERED: PIPERACILLIN-TAZOB 2.25GM 50 ML IV ONE (15:30)
[2020-06-20] MEDS ORDERED: PIPERACILLIN-TAZOB 3.375GM 100 ML IV ONE (15:45)
[2020-06-20] MEDS ORDERED: FUROSEMIDE 20 MG/2 ML VIAL IV ONE (15:45)
[2020-06-20 16:54] VITALS: BP 136/76
[2020-06-20] MEDS ORDERED: VANCOMYCIN PER PHARMACY 0 MG IV SCH (17:30)
--- NOTE | 2020-06-20 19:13 | NUR ---
Care endorsed to ANAND Fields, night nurse.
--- NOTE | 2020-06-20 19:30 | NUR ---
Opening Shift Note Assumed care of patient, awake and alert. No S/S of distress/SOB or pain. Instructed on POC and to call for assist PRN. Bed in lowest locked position, call light within reach, side rails up x2, fall precautions in place. Will continue to monitor for changes Q1hr and PRN.
--- NOTE | 2020-06-20 19:45 | NUR ---
Respiratory note: PT ASSESSED FOR PRN TX AT THIS TIME. HEART RATE 77. RESPIRATORY RATE 18. SPO2 96% ON 2L NC. BREATH SOUNDS CLEAR T/O. PT DENIES ANY RESPIRATORY DISTRESS AT THIS TIME. PT INSTRUCTED TO HAVE RESPIRATORY CALLED IF THEY FEEL SOB OR FEEL DIFFICULTY BREATHING.
[2020-06-20] MEDS ORDERED: VANCOMYCIN 750mg/250ml 250 ML IV ONE (20:00)
[2020-06-20 22:00] VITALS: BP 136/83
[2020-06-20] MEDS: PIPERACILLIN-TAZOB 3.375GM 100 ML IV SCH (22:53)
[2020-06-20] MEDS: ATORVASTATIN 20 MG TAB PO SCH (22:53)
[2020-06-21 05:00] VITALS: BP 148/86
[2020-06-21 05:48] LABS: Potassium 3.9 mmol/L (3.5-5.1)
[2020-06-21 05:52] LABS: BUN/Creatinine Ratio 33.7; Calcium 8.2 mg/dL (8.5-10.1)
[2020-06-21] MEDS: InsuLIN REG 1unit/0.01ml Soln (100units/ml) SC SCH ×4 (06:35→22:00)
[2020-06-21] MEDS: PIPERACILLIN-TAZOB 3.375GM 100 ML IV SCH ×3 (06:35→22:48)
[2020-06-21] MEDS: ACCU-CHEK COMFORT CURVE STRIP VI SCH ×4 (06:35→22:49)
[2020-06-21] MEDS: CARBIDOPA W LEVODOPA 25/100mg TABLET PO SCH ×3 (06:35→22:49)
--- NOTE | 2020-06-21 06:56 | NUR ---
PT ASSESSED BY RT, PT HR 75BPM, RR15, SPO2 99% ON 2LNC, PT STATES SHE DOES NOT USE HOME O2, RT TITRATED O2 TO 1LNC, PT BILATERAL BREATH SOUNDS ARE CLEAR, IF PT HAS ANY ACUTE CHANGE IN CONDITION RT WILL RESPOND WITH APPROPRIATE THERAPY
--- NOTE | 2020-06-21 08:30 | NUR ---
Opening Shift Note Received report from mine shifter nurse, assumed care of patient, awake and alert. No S/S of distress/SOB or pain. Nasal cannula in place 2L, Pappas in low position/free of kinks. Instructed on POC and to call for assist PRN, will continue to monitor for changes Q1hr and PRN. Call light within reach, bed in lowest position.
[2020-06-21 09:00] VITALS: BP 150/89
[2020-06-21] MEDS: ASPirin-EC 81 mg tab PO SCH (09:16)
[2020-06-21] MEDS: FAMOTIDINE 20 MG TAB PO SCH (09:16)
[2020-06-21] MEDS: CLOPIDOGREL BISULFATE 75 MG TAB PO SCH (09:16)
[2020-06-21] MEDS: amLODIPine BESYLATE 5 MG TAB PO SCH (09:17)
[2020-06-21] MEDS: FUROSEMIDE 20 MG/2 ML VIAL IV SCH (09:17)
--- NOTE | 2020-06-21 10:41 | NUR ---
PULMONOLOGY Dr Fontenot at bedside for Pulmonology follow up, no new orders received at this time. Patient updated on plan of care, verbalized understanding.
[2020-06-21] MEDS: VANCOMYCIN 1GM/250ML 250 ML IV SCH (11:36)
--- NOTE | 2020-06-21 12:45 | NUR ---
Oxygen saturation monitoring Per MD Fontenot patient off nasal cannula for oxygen saturation monitoring, will monitor O2 sat on room air.
[2020-06-21 13:00] VITALS: BP 151/84
[2020-06-21] MEDS: HYDROcodone-ACET 5/325MG TAB PO PRN (13:11)
--- NOTE | 2020-06-21 13:12 | NUR ---
O2 monitoring Reassessed O2 saturation on room air, O2 sat 92% with no signs of distress/SOB. Patient educated on oxygen application if needed, patient verbalized understanding.
[2020-06-21 17:00] VITALS: BP 154/84
[2020-06-21] MEDS: ONDANSETRON HCL 4 MG/2 ML VIAL IV PRN (18:15)
--- NOTE | 2020-06-21 18:59 | NUR ---
Care endorsed to ANAND Salas, night nurse.
[2020-06-21] MEDS: ACETAMINOPHEN 500 MG TAB PO PRN (19:43)
[2020-06-21 22:24] VITALS: BP 129/68
[2020-06-21] MEDS: ATORVASTATIN 20 MG TAB PO SCH (22:49)
[2020-06-22 04:34] VITALS: BP 140/76
[2020-06-22 06:27] LABS: Basophils # (auto) 0 10 ^3/uL (0-0.2); Basophils % (auto) 0.7 % (0.0-2.0); Eosinophils # (auto) 0.1 10 ^3/uL (0-0.8); Eosinophils % (auto) 1.6 % (0.0-7.0); Hematocrit 41.5 % (36.0-46.0); Lymphocytes # (auto) 0.7 10 ^3/uL (0.4-5.4); Lymphocytes % (auto) 9.5 % (10.0-50.0); Mean Corpuscular Hemoglobin 30.4 pg (28.0-32.0); Mean Corpuscular Hgb Conc. 33.7 g/dL (32.0-36.0); Mean Corpuscular Volume 90.3 fL (80.0-100.0); Monocytes # (auto) 0.5 10 ^3/uL (0-1.3); Monocytes % (auto) 6.9 % (0.0-12.0); Neutrophils # (auto) 5.7 10 ^3/uL (1.6-8.6); Neutrophils % (auto) 81.3 % (37.0-80.0); Nucleated Red Blood Cells % 0.2 %; Platelet Count (auto) 269 10^3/uL (140-450); Red Blood Cells 4.59 10^6/uL (4.0-5.20); Red Cell Distribution Width 14.2 % (11.8-14.3)
[2020-06-22] MEDS: InsuLIN REG 1unit/0.01ml Soln (100units/ml) SC SCH ×3 (06:34→17:53)
[2020-06-22] MEDS: PIPERACILLIN-TAZOB 3.375GM 100 ML IV SCH ×2 (06:34→14:31)
[2020-06-22] MEDS: CARBIDOPA W LEVODOPA 25/100mg TABLET PO SCH ×2 (06:34→14:11)
[2020-06-22] MEDS: ACCU-CHEK COMFORT CURVE STRIP VI SCH ×3 (06:34→17:54)
[2020-06-22 06:45] LABS: Potassium 3.4 mmol/L (3.5-5.1)
[2020-06-22 07:06] LABS: BUN/Creatinine Ratio 26.6; Calcium 8.1 mg/dL (8.5-10.1)
--- NOTE | 2020-06-22 08:00 | NUR ---
Morning note Patient resting in bed with even and unlabored respirations, no distress noted. Instructed patient on POC, fall precautions, pressure injury prevention and to call for assistance as needed. Patient verbalized understanding. Fall precautions in place with call light within reach.
--- NOTE | 2020-06-22 08:00 | NUR ---
Opening Shift Note Received report from production supervisor off shift nurse, assumed care of patient, awake and alert. No S/S of distress/SOB or pain. Zosyn running 33ml/hr. Pappas free of kinks and patent. Instructed on POC and to call for assist PRN, will continue to monitor for changes Q1hr and PRN.
[2020-06-22] MEDS: FUROSEMIDE 20 MG/2 ML VIAL IV SCH (08:55)
[2020-06-22] MEDS: CLOPIDOGREL BISULFATE 75 MG TAB PO SCH (08:56)
[2020-06-22] MEDS: FAMOTIDINE 20 MG TAB PO SCH (08:56)
[2020-06-22] MEDS: ASPirin-EC 81 mg tab PO SCH (08:56)
[2020-06-22] MEDS: amLODIPine BESYLATE 5 MG TAB PO SCH (08:56)
[2020-06-22 09:00] VITALS: BP 146/82
--- NOTE | 2020-06-22 09:00 | NUR ---
PHYSICAL THERAPY AT BEDSIDE PATIENT AMBULATED WITH PT FROM BED TO THE DOOR. SIGNS OF SOB, SATS AT 87% WHILE AMBULATION. PATIENT WALKED BACK TO BED WITH O2 1L NASAL CANNULA IN PLACE. WILL CONTINUE TO MONITOR.
[2020-06-22] MEDS ORDERED: POTASSIUM CHL 20 Meq TABLET PO ONE (09:15)
[2020-06-22] MEDS ORDERED: LEVO750T64 PO (09:42)
[2020-06-22] MEDS ORDERED: ALBUAER3 IN (09:43)
[2020-06-22] MEDS ORDERED: FURO20TA3 PO (09:44)
[2020-06-22] MEDS ORDERED: POTA1TAB61 PO (09:44)
--- NOTE | 2020-06-22 09:50 | NUR ---
MD CARLSON AT BEDSIDE NO NEW ORDERS RECEIVED.
[2020-06-22] MEDS: VANCOMYCIN 1GM/250ML 250 ML IV SCH (10:46)
[2020-06-22] MEDS: ONDANSETRON HCL 4 MG/2 ML VIAL IV PRN (11:14)
--- NOTE | 2020-06-22 12:01 | NUR ---
Respiratory note: PT ASSESSED FOR PRN MED NEB. PT FOUND ON 1 LPM SP02 96%, HR 71, RR 20. PT DIMINISHED. NO S/S OF RESPIRATORY DISTRESS. NO INDICATION FOR TREATMENT AT THIS TIME. PT AWARE TO HAVE RT PAGED IF SOB. WILL CONTINUE TO MONITOR.
--- NOTE | 2020-06-22 12:49 | NUR ---
Nutrition Assessment Notes Please refer to link for full assessment notes. Est Energy needs: [id number] kcals (20-23 kcal/kgBW) Est Protein needs: 51-56 gms/day (1.0-1.1 gm/kgBW) Will continue to monitor and reassess prn. Addendum: 06/22/20 at [address] Amended: Links added.
[2020-06-22 13:00] VITALS: BP 144/77
--- NOTE | 2020-06-22 14:23 | NUR ---
assessment Patient is a 84 year old female. Per patients caregiver Jemima at [facility] board and care patient resides at [facility] and functions with assistance from staff. Patient has a fww, wheelchair, bedside commode, hospital bed and oxygen for home use. Per Jemima patient will be returning on discharge and she will transport her back to facility. Jemima and Mireya HERNANDEZ agreed to discharge plan back to facility. Addendum: 06/22/20 at 1429 by Selina NINA Amended: Links added.
--- NOTE | 2020-06-22 14:32 | NUR ---
RE: Zosyn IV catheter infiltrated. IV access not available to administer scheduled IV antibiotic. Patient refused for RN to start IV d/t patient having active discharge order. Education provided to the patient. Patient verbalized understanding. patient continued to refuse for IV to be started. Paged Dr. Julian to notify.
--- NOTE | 2020-06-22 16:34 | NUR ---
re-assessment Per consult home health for PT. order has been sent to [facility] #[id number]. Per Lilli at [facility] service will start 06/24/20. Home health and auth sent to [facility] for hard copy. Addendum: 06/22/20 at 1636 by Selina Campos Amended: Links added.
[2020-06-22 16:42] VITALS: BP 132/85
--- NOTE | 2020-06-22 17:09 | NUR ---
Patient had a small-moderate solid brown BM.
--- NOTE | 2020-06-22 17:10 | NUR ---
Pappas catheter removed with aseptic technique after catheter balloon deflated. Patient tolerated well.
--- NOTE | 2020-06-22 17:12 | NUR ---
Discharge Discharge education and paperwork provided to the patient. Patient verbalized understanding. Discharge education provided to Jemima, caregiver. Jemima verbalized understanding. IV removed, catheter intact. Dressing applied. Patient tolerated well, no trauma to site. Telemonitor removed and returned. Patient reports having all personal belongings. Respirations even and unlabored, no distress noted. Jemima's ETA is 15-20 minutes.
--- NOTE | 2020-06-22 17:55 | NUR ---
Transportation arrived to hospital Patient transferred to private vehicle via wheelchair, accompanied by staff member. No distress noted.
== END 2020-06-22 18:30 | disposition home health service (06) | DRG 193 ==
LOC: ER 05:45 → EDBD 05:45 → TELE 05:46 → TELE-CENTR 22:11
PROVIDERS: ADMIT Nurse Practitioner Acute Care; ATTEND Internal Medicine
DX: J18.9 Pneumonia, unspecified organism (principal); I50.43 Acute on chronic combined systolic (congestive) and diastolic (congestive) heart failure; J96.01 Acute respiratory failure with hypoxia; J44.1 Chronic obstructive pulmonary disease with (acute) exacerbation; E44.1 Mild protein-calorie malnutrition; I13.0 Hypertensive heart and chronic kidney disease with heart failure and stage 1 through stage 4 chronic kidney disease, or unspecified chronic kidney disease; J98.11 Atelectasis; J44.0 Chronic obstructive pulmonary disease with (acute) lower respiratory infection; J91.8 Pleural effusion in other conditions classified elsewhere; N18.30 Chronic kidney disease, stage 3 unspecified; Z66 Do not resuscitate; E11.22 Type 2 diabetes mellitus with diabetic chronic kidney disease; I25.10 Atherosclerotic heart disease of native coronary artery without angina pectoris; I35.0 Nonrheumatic aortic (valve) stenosis; I77.810 Thoracic aortic ectasia; K44.9 Diaphragmatic hernia without obstruction or gangrene; M41.9 Scoliosis, unspecified; Z20.828 Contact with and (suspected) exposure to other viral communicable diseases; Z79.02 Long term (current) use of antithrombotics/antiplatelets; Z79.84 Long term (current) use of oral hypoglycemic drugs; Z86.73 Personal history of transient ischemic attack (TIA), and cerebral infarction without residual deficits; Z90.710 Acquired absence of both cervix and uterus; Z95.5 Presence of coronary angioplasty implant and graft; Z96.611 Presence of right artificial shoulder joint; F32.9 Major depressive disorder, single episode, unspecified; F41.9 Anxiety disorder, unspecified; K21.9 Gastro-esophageal reflux disease without esophagitis; B95.7 Other staphylococcus as the cause of diseases classified elsewhere; G20 Parkinson's disease
CPT/HCPCS: 36415; 36600; 70450; 71045; 71275; 80048; 80053; 80202; 82805; 82962; 83605; 83615; 83880; 84484; 85025; 85610; 85730; 87040; 87077; 87081; 87186; 87426; 96365; 96366; 96367; 97163; 99291; G0378; J0696; J2405; J2543